=== PATIENT | male | born 1950 | race Caucasian/White ===

== ENCOUNTER → 2016-09-23 | Outpatient (CLI) | payer MEDICARE, BC | LOC: MW.CHRC 08:00 | PROVIDERS: ATTEND Family Medicine | DX: NODX10 (principal) ==

== ENCOUNTER → 2016-10-05 | Outpatient (CLI) | payer MEDICARE, BC | LOC: MW.CHRC 08:00 | PROVIDERS: ATTEND Family Medicine | DX: NODX10 (principal) ==

== ENCOUNTER → 2016-10-18 | Outpatient (CLI) | payer MEDICARE, BC ==
[2016-10-18 08:56] LABS: CHLORIDE,CL 106 mmol/L (98-110); SODIUM,NA 138 mmol/L (136-146)
== END ==
LOC: MW.CHFP 07:51
PROVIDERS: ATTEND Family Medicine
DX: I10 Essential (primary) hypertension (principal); E11.9 Type 2 diabetes mellitus without complications; E78.00 Pure hypercholesterolemia, unspecified
CPT/HCPCS: 36415; 80053; 80061; 82044; 83036; 99215

== ENCOUNTER → 2016-10-19 | Outpatient (CLI) | payer MEDICARE, BC | LOC: MW.CHRC 08:00 | PROVIDERS: ATTEND Family Medicine | DX: NODX10 (principal) ==

== ENCOUNTER → 2016-11-09 | Outpatient (CLI) | payer MEDICARE, BC | LOC: MW.CHRC 08:00 | PROVIDERS: ATTEND Family Medicine | DX: NODX10 (principal) ==

== ENCOUNTER 2018-10-07 15:30 | Emergency (ER) | payer MEDICARE, BC ==
--- NOTE | 2018-10-07 15:45 | EDM.PDOC ---
ED HPI GENERAL MEDICAL PROBLEM - General Chief Complaint: ENT Problem Stated Complaint: BLOODY NOSE FOR A COUPLE OF DAY Time Seen by Provider: 10/07/18 15:45 Source of Information: Reports: Patient - History of Present Illness INITIAL COMMENTS - FREE TEXT/NARRATIVE: HISTORY AND PHYSICAL: History of present illness: [Patient presents with epistaxis off and on for last 2 days has a history of picking his nose started the bleeding No fever nausea vomiting chills sweats no chest pain shortness breath headache dizziness palpitation no bowel or urine symptoms On arrival we did place nares pack on back of his neck in the nose clamp which has resolved bleeding and did cauterize a couple of lesions 1 in each nares very anterior consistent with picking the nose] Review of systems: As per history of present illness and below otherwise all systems reviewed and negative. Past medical history: As per history of present illness and as reviewed below otherwise noncontributory. Surgical history: As per history of present illness and as reviewed below otherwise noncontributory. Social history: No reported history of drug or alcohol abuse. Family history: As per history of present illness and as reviewed below otherwise noncontributory. Physical exam: HEENT: Atraumatic, normocephalic, pupils reactive, negative for conjunctival pallor or scleral icterus, mucous membranes moist, throat clear, neck supple, nontender, trachea midline. Nares are patent no blood observed in the oropharynx or active bleeding does have a couple of excoriations one in each anterior nares cauterized these with silver nitrate no further bleeding Lungs: Clear to auscultation, breath sounds equal bilaterally, chest nontender. Heart: S1S2, regular, negative for clicks, rubs, or JVD. Abdomen: Soft, nondistended, nontender. Negative for masses or hepatosplenomegaly. Negative for costovertebral tenderness. Pelvis: Stable nontender. Genitourinary: Deferred. Rectal: Deferred. Extremities: Atraumatic, negative for cords or calf pain. Neurovascular unremarkable. Neuro: Awake, alert, oriented. Cranial nerves II through XII unremarkable. Cerebellum unremarkable. Motor and sensory unremarkable throughout. Exam nonfocal. Diagnostics: [EBC INR ] Therapeutics: [Silver nitrate ] Impression: [Stat axis resolved ] Definitive disposition and diagnosis as appropriate pending reevaluation and review of above. - Related Data Allergies Allergy/AdvReac Type Severity Reaction Status Date / Time No Known Allergies Allergy Verified 10/07/18 15:44 Home Meds: Home Meds amLODIPine [Norvasc] 5 mg PO DAILY 01/09/15 [History] atorvaSTATin Calcium [Atorvastatin Calcium] 20 mg PO BEDTIME 01/09/15 [History] metFORMIN HCl [Metformin HCl] 1,000 mg PO BID 01/09/15 [History] Furosemide [Lasix] 40 mg PO DAILY 01/13/15 [History] Insulin Lispro [Humalog] 35 units SUBCUT BID 10/07/18 [History] Past Medical History HEENT History: Reports: Other (See Below) Other HEENT History: upper partial Cardiovascular History: Reports: High Cholesterol, Hypertension Respiratory History: Reports: Other (See Below) Other Respiratory History: "possible sleep apnea", unable to finish sleep apnea test- no CPAP mask Other Genitourinary History: urgency and frequency in urination Musculoskeletal History: Reports: None Neurological History: Reports: None Psychiatric History: Reports: None Endocrine/Metabolic History: Reports: Obesity/BMI 30+ Hematologic History: Reports: None Immunologic History: Reports: None Oncologic (Cancer) History: Reports: None Dermatologic History: Reports: None - Past Surgical History GI Surgical History: Reports: Hernia Repair/Other ED ROS GENERAL - Review of Systems Review Of Systems: See Below ED EXAM, GENERAL - Physical Exam Exam: See Below Course - Vital Signs Last Recorded V/S: Last Vital Signs Temp 97.3 F 10/07/18 15:46 Pulse 86 10/07/18 15:46 Resp 18 10/07/18 15:46 BP 178/73 H 10/07/18 15:46 Pulse Ox 95 10/07/18 15:46 - Orders/Labs/Meds Labs: Laboratory Tests 10/07/18 10/07/18 Range/Units 16:13 16:13 WBC 10.43 (4.0-11.0) K/uL RBC 4.24 L (4.50-5.90) M/uL Hgb 13.8 (13.0-17.0) g/dL Hct 39.9 (38.0-50.0) % MCV 94.1 (80.0-98.0) fL MCH 32.5 H (27.0-32.0) pg MCHC 34.6 (31.0-37.0) g/dL RDW Std Deviation 44.6 (28.0-62.0) fl RDW Coeff of Ash 13 (11.0-15.0) % Plt Count 286 (150-400) K/uL MPV 8.90 (7.40-12.00) fL Neut % (Auto) 82.0 H (48.0-80.0) % Lymph % (Auto) 11.8 L (16.0-40.0) % Real % (Auto) 5.4 (0.0-15.0) % Eos % (Auto) 0.6 (0.0-7.0) % Baso % (Auto) 0.2 (0.0-1.5) % Neut # (Auto) 8.6 H (1.4-5.7) K/uL Lymph # (Auto) 1.2 (0.6-2.4) K/uL Real # (Auto) 0.6 (0.0-0.8) K/uL Eos # (Auto) 0.1 (0.0-0.7) K/uL Baso # (Auto) 0.0 (0.0-0.1) K/uL Nucleated RBC % 0.0 /100WBC Nucleated RBCs # 0 K/uL INR 0.99 Departure - Departure Time of Disposition: 17:11 Disposition: Home, Self-Care 01 Condition: Good Clinical Impression: Epistaxis - Discharge Information Referrals: PCP,Unknown [Primary Care Provider] - Forms: ED Department Discharge Additional Instructions: The following information is given to patients seen in the emergency department who are being discharged to home. This information is to outline your options for follow-up care. We provide all patients seen in our emergency department with a follow-up referral. The need for follow-up, as well as the timing and circumstances, are variable depending upon the specifics of your emergency department visit. If you don't have a primary care physician on staff, we will provide you with a referral. We always advise you to contact your personal physician following an emergency department visit to inform them of the circumstance of the visit and for follow-up with them and/or the need for any referrals to a consulting specialist. The emergency department will also refer you to a specialist when appropriate. This referral assures that you have the opportunity for follow-up care with a specialist. All of these measure are taken in an effort to provide you with optimal care, which includes your follow-up. Under all circumstances we always encourage you to contact your private physician who remains a resource for coordinating your care. When calling for follow-up care, please make the office aware that this follow-up is from your recent emergency room visit. If for any reason you are refused follow-up, please contact the [facility] emergency department at and asked to speak to the emergency department charge nurse.
[2018-10-07 17:22] VITALS: BP 171/72
== END 2018-10-07 17:22 | disposition home or self-care (01) ==
LOC: MW.ED 15:30
DX: R04.0 Epistaxis (principal); E78.00 Pure hypercholesterolemia, unspecified; I10 Essential (primary) hypertension; Z79.899 Other long term (current) drug therapy
CPT/HCPCS: 36415; 85025; 85610; 99283

== ENCOUNTER 2018-12-31 03:23 | Observation (INO) | payer MEDICARE, BC ==
[2018-12-31] MEDS ORDERED: Sodium Chloride 0.9% 2.5 ML Syringe FLUSH PRN (03:51)
[2018-12-31] MEDS ORDERED: Sodium Chloride 0.9% 10 ML Syringe FLUSH PRN (03:51)
--- NOTE | 2018-12-31 04:59 | CR ---
Indication: Shortness of breath Technique: Chest 2 view Comparison: December 29, 2018 Findings/Impression: Stable cardiomegaly. Normal pulmonary vasculature. No focal infiltrate, effusion, or pneumothorax. Degenerative changes in the spine. Dictated by Mahogany Ferrer MD @ Dec 31 2018 4:55AM Signed by Dr. Mahogany Ferrer @ Dec 31 2018 4:58AM
[2018-12-31 05:15] LABS: CHLORIDE,CL 106 mmol/L (98-107); SODIUM,NA 144 mmol/L (136-148)
[2018-12-31] MEDS: Vancomycin 1.75 GM in Sodium Chloride 0.9% 500 ML IV SCH (05:24)
[2018-12-31] MEDS: Insulin Aspart 100 Units/ML 3 ML Pen SUBCUT SCH ×3 (07:29→17:46)
[2018-12-31] MEDS ORDERED: Albuterol/Ipratropium 3.0-0.5 MG/3 ML Neb Soln NEB PRN (08:34)
[2018-12-31] MEDS ORDERED: Acetaminophen 325 MG Tab PO PRN (08:34)
[2018-12-31] MEDS ORDERED: Ondansetron 4 MG/2 ML SDV IVPUSH PRN (08:34)
--- NOTE | 2018-12-31 08:47 | PCM.HP ---
H&P History of Present Illness - General Date of Service: 12/31/18 Admit Problem/Dx: Positive blood culture Source of Information: Patient, Old Records History Limitations: Reports: No Limitations - History of Present Illness Initial Comments - Free Text/Narative: This 68 year old male with pmh of HTN, DM Types 2, Afib/flutter, and JOSSELIN was admitted directly after 06/29 BC returned positive. He was previously admitted for chest pain and ACS was ruled out. CT angio of chest revealed ground glass opacities to RUL and RML along with bibasilar atelectasis in which he as treated with Azithromycin and Rocephin. He reports the L sided sharp chest pain is nearly gone, only there when he takes a really deep breath. He reports some mild shortness of breath when he lies flat. reports some mild peripheral edema. He reports he only wears his CPAP after he feels like he isn't getting a good nights sleep. He denies cough or fevers. He reports his pulse ox was reading 87- 90% at home. He denies urinary concerns, reports constipation. Repeat labwork, WNL. CXR reveals cardiomegaly, otherwise no infiltrates. Repeat BC obtained on admission. He will be admitted for positive blood cultures. PCP, Dr Redd. - Related Data Allergies/Adverse Reactions: Allergies Allergy/AdvReac Type Severity Reaction Status Date / Time No Known Allergies Allergy Verified 12/31/18 08:26 Home Medications: Home Meds amLODIPine [Norvasc] 5 mg PO DAILY 01/09/15 [History] atorvaSTATin Calcium [Atorvastatin Calcium] 20 mg PO BEDTIME 01/09/15 [History] metFORMIN HCl [Metformin HCl] 1,000 mg PO BID 01/09/15 [History] Insulin Lispro [Humalog] 35 units SUBCUT BID 10/07/18 [History] Potassium Chloride [Klor-Con 10] 1 tab PO DAILY 12/29/18 [History] Sertraline [Zoloft] 1 tab PO DAILY 12/29/18 [History] Apixaban [Eliquis] 5 mg PO BID #60 tablet 12/30/18 [Rx] Azithromycin [Zithromax] 250 mg PO DAILY #4 tab 12/30/18 [Rx] Bumetanide 1 mg PO DAILY 12/31/18 [History] Past Medical History HEENT History: Reports: Other (See Below) Other HEENT History: upper partial Cardiovascular History: Reports: Afib, High Cholesterol, Hypertension Respiratory History: Reports: Sleep Apnea (CPAP at home, but only wears it sparingly) Other Genitourinary History: urgency and frequency in urination Musculoskeletal History: Reports: None Neurological History: Reports: None Psychiatric History: Reports: None Endocrine/Metabolic History: Reports: Obesity/BMI 30+ Hematologic History: Reports: None Immunologic History: Reports: None Oncologic (Cancer) History: Reports: None Dermatologic History: Reports: None - Infectious Disease History Infectious Disease History: Reports: Chicken Pox - Past Surgical History Head Surgeries/Procedures: Reports: None GI Surgical History: Reports: Hernia Repair/Other Social & Family History - Family History Family Medical History: Noncontributory - Tobacco Use Smoking Status *Q: Never Smoker Second Hand Smoke Exposure: No - Caffeine Use Caffeine Use: Reports: Coffee, Soda - Alcohol Use Alcohol Use History: No Alcohol Use Frequency: Rarely - Recreational Drug Use Recreational Drug Use: No H&P Review of Systems - Review of Systems: Review Of Systems: See Below General: Reports: No Symptoms. Denies: Fever, Chills, Malaise, Weakness HEENT: Reports: No Symptoms. Denies: Headaches, Sinus Congestion, Sore Throat Pulmonary: Reports: Shortness of Breath (intermittently, and sats dip to 87% at home), Pleuritic Chest Pain (with deep breaths). Denies: Cough, Sputum Cardiovascular: Reports: Orthopnea. Denies: Chest Pain, Palpitations, Edema, Lightheadedness, Blood Pressure Problem Gastrointestinal: Reports: Constipation. Denies: Black Stool, Bloody Stool, Nausea, Vomiting Genitourinary: Reports: No Symptoms. Denies: Dysuria, Frequency, Burning Musculoskeletal: Reports: No Symptoms Skin: Reports: No Symptoms Psychiatric: Reports: No Symptoms Neurological: Reports: No Symptoms Hematologic/Lymphatic: Reports: No Symptoms Immunologic: Reports: No Symptoms Exam - Exam Exam: See Below - Vital Signs Vital Signs: Last Vital Signs Temp 97.2 F 12/31/18 07:40 Pulse 67 12/31/18 07:40 Resp 20 12/31/18 07:40 BP 152/71 H 12/31/18 07:40 Pulse Ox 93 L 12/31/18 07:40 Weight: 118.932 kg - Exam General: Alert, Oriented, Cooperative Neck: Supple, Trachea Midline Lungs: Clear to Auscultation, Normal Respiratory Effort Cardiovascular: Regular Rate, Regular Rhythm GI/Abdominal Exam: Normal Bowel Sounds, Soft, Non-Tender Back Exam: Normal Inspection, Full Range of Motion Extremities: Normal Inspection, Normal Range of Motion, Non-Tender, Pedal Edema Neurological: Cranial Nerves Intact Neuro Extensive - Mental Status: Alert, Oriented x3 Neuro Extensive - Motor, Sensory, Reflexes: CN II-XII Intact Psychiatric: Alert, Normal Affect, Normal Mood - Patient Data Lab Results Last 24 hrs: Laboratory Results - last 24 hr 12/31/18 12/31/18 12/31/18 Range/Units 04:46 04:46 06:36 WBC 8.12 (4.0-11.0) K/uL RBC 4.32 L (4.50-5.90) M/uL Hgb 13.6 (13.0-17.0) g/dL Hct 40.7 (38.0-50.0) % MCV 94.2 (80.0-98.0) fL MCH 31.5 (27.0-32.0) pg MCHC 33.4 (31.0-37.0) g/dL RDW Std Deviation 46.8 (28.0-62.0) fl RDW Coeff of Ash 14 (11.0-15.0) % Plt Count 317 (150-400) K/uL MPV 8.80 (7.40-12.00) fL Neut % (Auto) 72.0 (48.0-80.0) % Lymph % (Auto) 16.4 (16.0-40.0) % [place] % (Auto) 9.2 (0.0-15.0) % Eos % (Auto) 2.2 (0.0-7.0) % Baso % (Auto) 0.2 (0.0-1.5) % Neut # (Auto) 5.8 H (1.4-5.7) K/uL Lymph # (Auto) 1.3 (0.6-2.4) K/uL [place] # (Auto) 0.8 (0.0-0.8) K/uL Eos # (Auto) 0.2 (0.0-0.7) K/uL Baso # (Auto) 0.0 (0.0-0.1) K/uL Nucleated RBC % 0.0 /100WBC Nucleated RBCs # 0 K/uL Sodium 144 (136-148) mmol/L Potassium 3.4 L (3.5-5.1) mmol/L Chloride 106 (98-107) mmol/L Carbon Dioxide 28.4 (21.0-32.0) mmol/L BUN 18 (7.0-18.0) mg/dL Creatinine 0.8 (0.8-1.3) mg/dL Est Cr Clr Drug Dosing 78.64 mL/min Estimated GFR (MDRD) > 60.0 ml/min Glucose 120 H (74-106) mg/dL POC Glucose 111 H (60-110) mg/dL Calcium 8.6 (8.5-10.1) mg/dL Result Diagrams: 12/31/18 04:46 12/31/18 04:46 *Q Meaningful Use (ADM) - VTE Risk Assess *Q Each Risk Factor Represents 1 Point: Obesity ( BMI > 25 kg/m2), Congestive heart failure (CHF), Serious lung disease including pneumonia Total Score 1 Point Risk Factors: 3 Each Risk Factor Represents 2 Points: Age 60 - 74 Years Total Score 2 Point Risk Factors: 2 Each Risk Factor Represents 3 Points: None Total Score 3 Point Risk Factors: 0 Each Risk Factor Represents 5 Points: None Total Score 5 Point Risk Factors: 0 Venous Thromboembolism Risk Factor Score *Q: 5 - Problem List (1) Positive blood culture SNOMED Code(s): 333090023 ICD Code: R78.81 - BACTEREMIA Status: Acute Current Visit: Yes (2) Dyspnea SNOMED Code(s): 399371772 ICD Code: R06.00 - DYSPNEA, UNSPECIFIED Status: Acute Current Visit: No Qualifiers: Dyspnea type: orthopnea Qualified Code(s): R06.01 - Orthopnea (3) Orthopnea SNOMED Code(s): 12201896 ICD Code: R06.01 - ORTHOPNEA Status: Acute Current Visit: Yes (4) HTN (hypertension) SNOMED Code(s): 94129827 ICD Code: I10 - ESSENTIAL (PRIMARY) HYPERTENSION Status: Chronic Current Visit: Yes (5) DM type 2 (diabetes mellitus, type 2) SNOMED Code(s): 45011887 ICD Code: E11.9 - TYPE 2 DIABETES MELLITUS WITHOUT COMPLICATIONS Status: Chronic Current Visit: Yes Qualifiers: Diabetes mellitus fci insulin use: with fci use Diabetes mellitus complication status: with circulatory complication (6) JOSSELIN on CPAP SNOMED Code(s): 38213336 ICD Code: G47.33 - OBSTRUCTIVE SLEEP APNEA (ADULT) (PEDIATRIC); Z99.89 - DEPENDENCE ON OTHER ENABLING MACHINES AND DEVICES Status: Chronic Current Visit: Yes (7) Atrial fibrillation SNOMED Code(s): 02961103 ICD Code: I48.91 - UNSPECIFIED ATRIAL FIBRILLATION Status: Chronic Current Visit: Yes (8) On continuous oral anticoagulation SNOMED Code(s): 355342671 ICD Code: Z79.01 - JAIL (CURRENT) USE OF ANTICOAGULANTS Status: Chronic Current Visit: Yes Problem List Initiated/Reviewed/Updated: Yes Orders Last 24hrs: Active Orders 24 hr Category Date Time Status Blood Glucose Check, Bedside [RC] WITHMEALSANDBED Care 12/31/18 03:52 Active Incentive Spirometry [RT Incentive Spirometry] [RC] Care 12/31/18 03:52 Active Q1HWA Intake and Output [RC] QSHIFT Care 12/31/18 08:34 Ordered Oxygen Therapy [RC] PRN Care 12/31/18 08:34 Ordered RT Aerosol Therapy [RC] ASDIRECTED Care 12/31/18 08:37 Ordered Telemetry Monitoring [Cardiac Monitoring] [RC] Q8H Care 12/31/18 03:50 Active Up ad Quynh [RC] ASDIRECTED Care 12/31/18 08:34 Ordered VTE/DVT Education [RC] PER UNIT ROUTINE Care 12/31/18 08:34 Ordered Vital Signs [RC] Q4H Care 12/31/18 08:34 Ordered ADA Diabetic [[place] [employer] Diet] [DIET Diet 12/31/18 Breakfast Active ] Echo Comp wo Cont [US] Routine Exams 12/31/18 08:31 Ordered CULTURE BLOOD [BC] Stat Lab 12/31/18 04:46 Received CULTURE BLOOD [BC] Stat Lab 12/31/18 05:20 Received VANCOMYCIN TROUGH [CHEM] Timed Lab 01/03/19 03:30 Ordered Acetaminophen [Tylenol] Med 12/31/18 08:34 Ordered 650 mg PO Q4H PRN Albuterol/Ipratropium [DuoNeb 3.0-0.5 MG/3 ML] Med 12/31/18 08:34 Ordered 3 ml NEB Q4HRRT PRN Azithromycin [Zithromax] Med 12/31/18 08:30 Ordered 500 mg PO Q24H Insulin Aspart [NovoLOG] Med 12/31/18 07:30 Active See Protocol SUBCUT TIDAC Ondansetron [Zofran] Med 12/31/18 08:34 Ordered 4 mg IVPUSH Q4H PRN Pharmacy to Dose - Vancomycin Med 12/31/18 04:00 Active 1 dose .XX ASDIRECTED Sodium Chloride 0.9% [Saline Flush] Med 12/31/18 03:51 Active 10 ml FLUSH ASDIRECTED PRN Sodium Chloride 0.9% [Saline Flush] Med 12/31/18 03:51 Active 2.5 ml FLUSH ASDIRECTED PRN Vancomycin 1.75 gm Med 12/31/18 04:00 Active Sodium Chloride 0.9% [Normal Saline] 500 ml IV Q24H cefTRIAXone [Rocephin in Dextrose,Iso-Osm 1 GM/50 ML] 1 Med 12/31/18 08:30 Ordered gm Premix Bag 1 bag IV Q24H Blood Culture x2 Reflex Set [OM.PC] Stat Oth 12/31/18 03:50 Ordered Saline Lock Insert [OM.PC] Routine Oth 12/31/18 03:51 Ordered Resuscitation Status Routine Resus Stat 12/31/18 08:34 Ordered Medication Orders Acetaminophen (Tylenol) 650 mg PO Q4H PRN PRN Reason: Pain (mild 1-3) Albuterol/Ipratropium (Duoneb 3.0-0.5 Mg/3 Ml) 3 ml NEB Q4HRRT PRN PRN Reason: Shortness Of Breath/wheezing Azithromycin (Zithromax) 500 mg PO Q24H [facility] Vancomycin HCl 1.75 gm/ Sodium (Chloride) 500 mls @ 333.333 mls/hr IV Q24H [facility] Last Admin: 12/31/18 05:24 Dose: 333.333 mls/hr Ceftriaxone Sodium/Dextrose 1 (gm/ Premix) 50 mls @ 100 mls/hr IV Q24H [facility] Insulin Aspart (Novolog) 0 unit SUBCUT TIDAC [facility]; Protocol Last Admin: 12/31/18 07:29 Dose: Not Given Ondansetron HCl (Zofran) 4 mg IVPUSH Q4H PRN PRN Reason: Nausea Sodium Chloride (Saline Flush) 10 ml FLUSH ASDIRECTED PRN PRN Reason: Keep Vein Open Sodium Chloride (Saline Flush) 2.5 ml FLUSH ASDIRECTED PRN PRN Reason: Keep Vein Open Vancomycin HCl (Pharmacy To Dose - Vancomycin) 1 dose .XX ASDIRECTED [facility] Assessment/Plan Comment:: THis 68 year old male admitted with positive blood cultures and noted to have continued dyspnea and orthopnea 1. Positive blood cultures: Rule out bacteremia. Repeat BC obtained this morning. Cover with Vancomycin. Consider contaminate. 2. Suspected CAP: Continue Rocephin and Azithromycin. No cough or sputum. 3. Orthopnea: Will give Bumex 1 mg IV now, and monitor effectiveness. Takes Bumex 1 mg PO at home. Will obtain ECHO to further evaluate Cardiomegaly. 4. JOSSELIN with CPAP: Educated on the necessity to wear CPAP every night to prevent cardiac risk. He verbalizes understanding. 5. DM Type 2: Hold PO meds. Continue Novolog SSI and monitor BS TIDAC. 6. Afib/fluter: noted on last admission, rate controlled. Eliquis to be continued for stroke prevention. Supplement potassium today, check Magnesium and supplement as needed. 7. HTN: Stable, continue Amlodipine. VTE prophylaxis: Elqiuis. Dispo: 1-2 days pending LENI.
[2018-12-31] MEDS ORDERED: Sertraline 50 MG Tab PO SCH ×2 (09:00→09:15)
[2018-12-31] MEDS ORDERED: Bumetanide 1 MG Tab PO SCH (09:03)
[2018-12-31] MEDS: Azithromycin 250 MG Tab PO SCH (09:03)
[2018-12-31] MEDS: cefTRIAXone 1 GM in Premix Bag 1 BAG IV SCH (09:04)
[2018-12-31] MEDS ORDERED: amLODIPine 5 MG Tab PO SCH (09:15)
[2018-12-31] MEDS ORDERED: Potassium Chloride 10 MEQ Tab.ER PO SCH (09:15)
[2018-12-31] MEDS ORDERED: Bumetanide 1 MG/4 ML MDV IVPUSH ONE (09:17)
[2018-12-31] MEDS ORDERED: Potassium Chloride 20 MEQ Tab.ER PO ONE (09:17)
[2018-12-31] MEDS: Apixaban 5 MG Tab PO SCH ×2 (10:22→21:07)
[2018-12-31] MEDS: amLODIPine 5 MG Tab PO SCH (10:32)
[2018-12-31] MEDS ORDERED: atorvaSTATin 20 MG Tab PO SCH (21:00)
[2019-01-01] MEDS: Vancomycin 1.75 GM in Sodium Chloride 0.9% 500 ML IV SCH (04:00)
[2019-01-01 06:27] LABS: CHLORIDE,CL 105 mmol/L (98-107); SODIUM,NA 142 mmol/L (136-148)
[2019-01-01] MEDS: Insulin Aspart 100 Units/ML 3 ML Pen SUBCUT SCH ×3 (08:08→17:33)
[2019-01-01] MEDS: amLODIPine 5 MG Tab PO SCH (08:15)
[2019-01-01] MEDS: Potassium Chloride 10 MEQ Tab.ER PO SCH (08:17)
[2019-01-01] MEDS: Sertraline 50 MG Tab PO SCH (08:18)
[2019-01-01] MEDS ORDERED: Bumetanide 1 MG/4 ML MDV IVPUSH ONE ×2 (08:36→12:00)
[2019-01-01] MEDS ORDERED: Bumetanide 1 MG Tab PO SCH (09:00)
[2019-01-01] MEDS ORDERED: amLODIPine 5 MG Tab PO SCH (09:00)
[2019-01-01] MEDS: cefTRIAXone 1 GM in Premix Bag 1 BAG IV SCH (09:03)
[2019-01-01] MEDS: Apixaban 5 MG Tab PO SCH ×2 (09:03→20:00)
[2019-01-01] MEDS: Azithromycin 250 MG Tab PO SCH (09:04)
--- NOTE | 2019-01-01 09:36 | PCM.PN ---
- General Info Date of Service: 01/01/19 Admission Dx/Problem (Free Text): Positive blood culture Subjective Update: Feeling better this morning. No concerns. Reports edema to legs has improved. No chest pain. No pain with deep breathing. Worried about BP elevated this morning. Functional Status: Reports: Pain Controlled, Tolerating Diet, Ambulating, Urinating - Review of Systems General: Reports: No Symptoms. Denies: Fever, Weakness HEENT: Reports: No Symptoms. Denies: Headaches, Sore Throat, Visual Changes Pulmonary: Reports: No Symptoms. Denies: Shortness of Breath, Pleuritic Chest Pain, Cough Cardiovascular: Reports: Edema (but improving to lower legs.) Gastrointestinal: Reports: No Symptoms. Denies: Abdominal Pain, Nausea, Vomiting Genitourinary: Reports: No Symptoms. Denies: Dysuria, Frequency, Burning Musculoskeletal: Reports: No Symptoms Skin: Reports: No Symptoms Neurological: Reports: No Symptoms Psychiatric: Reports: No Symptoms - Patient Data Vitals - Most Recent: Last Vital Signs Temp 97.5 F 01/01/19 07:30 Pulse 68 01/01/19 07:30 Resp 18 01/01/19 07:30 BP 197/87 H 01/01/19 07:30 Pulse Ox 94 L 01/01/19 07:30 Weight - Most Recent: 118.932 kg I&O - Last 24 Hours: Intake & Output 12/31/18 01/01/19 01/01/19 22:59 06:59 14:59 Intake Total 600 700 190 Output Total 895 150 Balance -295 550 190 Lab Results Last 24 Hours: Laboratory Results - last 24 hr 12/31/18 12/31/18 12/31/18 Range/Units 11:30 13:10 17:12 Sodium (136-148) mmol/L Potassium (3.5-5.1) mmol/L Chloride (98-107) mmol/L Carbon Dioxide (21.0-32.0) mmol/L BUN (7.0-18.0) mg/dL Creatinine (0.8-1.3) mg/dL Est Cr Clr Drug Dosing mL/min Estimated GFR (MDRD) ml/min Glucose (74-106) mg/dL POC Glucose 203 H 198 H 181 H (60-110) mg/dL Calcium (8.5-10.1) mg/dL Magnesium (1.8-2.4) mg/dL 12/31/18 01/01/19 01/01/19 Range/Units 21:13 05:35 06:39 Sodium 142 (136-148) mmol/L Potassium 3.7 (3.5-5.1) mmol/L Chloride 105 (98-107) mmol/L Carbon Dioxide 29.5 (21.0-32.0) mmol/L BUN 15 (7.0-18.0) mg/dL Creatinine 0.7 L (0.8-1.3) mg/dL Est Cr Clr Drug Dosing 89.88 mL/min Estimated GFR (MDRD) > 60.0 ml/min Glucose 184 H (74-106) mg/dL POC Glucose 169 H 174 H (60-110) mg/dL Calcium 8.2 L (8.5-10.1) mg/dL Magnesium 2.0 (1.8-2.4) mg/dL 01/01/19 Range/Units 07:43 Sodium (136-148) mmol/L Potassium (3.5-5.1) mmol/L Chloride (98-107) mmol/L Carbon Dioxide (21.0-32.0) mmol/L BUN (7.0-18.0) mg/dL Creatinine (0.8-1.3) mg/dL Est Cr Clr Drug Dosing mL/min Estimated GFR (MDRD) ml/min Glucose (74-106) mg/dL POC Glucose 161 H (60-110) mg/dL Calcium (8.5-10.1) mg/dL Magnesium (1.8-2.4) mg/dL Ranjit Results Last 24 Hours: Microbiology 12/31/18 05:20 Aerobic Blood Culture - Preliminary Blood - Venous - Lab Draw NO GROWTH AFTER 1 DAY Anaerobic Blood Culture - Preliminary NO GROWTH AFTER 1 DAY 12/31/18 04:46 Aerobic Blood Culture - Preliminary Blood - Venous NO GROWTH AFTER 1 DAY Anaerobic Blood Culture - Preliminary NO GROWTH AFTER 1 DAY Med Orders - Current: Current Medications Acetaminophen (Tylenol) 650 mg PO Q4H PRN PRN Reason: Pain (mild 1-3) Albuterol/Ipratropium (Duoneb 3.0-0.5 Mg/3 Ml) 3 ml NEB Q4HRRT PRN PRN Reason: Shortness Of Breath/wheezing Apixaban (Eliquis) 5 mg PO BID [facility] Last Admin: 01/01/19 09:03 Dose: 5 mg Azithromycin (Zithromax) 500 mg PO Q24H [facility] Last Admin: 01/01/19 09:04 Dose: 500 mg Vancomycin HCl 1.75 gm/ Sodium (Chloride) 500 mls @ 333.333 mls/hr IV Q24H [facility] [place] Last Admin: 01/01/19 04:00 Dose: 333.333 mls/hr Ceftriaxone Sodium/Dextrose 1 (gm/ Premix) 50 mls @ 100 mls/hr IV Q24H [facility] Last Admin: 01/01/19 09:03 Dose: 100 mls/hr Insulin Aspart (Novolog) 0 unit SUBCUT TIDAC [facility] [place]; Protocol Last Admin: 01/01/19 08:08 Dose: 2 units Ondansetron HCl (Zofran) 4 mg IVPUSH Q4H PRN PRN Reason: Nausea Potassium Chloride (10 Meq Tab.Er) 1 each PO DAILY [facility] [place] Last Admin: 01/01/19 08:17 Dose: 10 each Atorvastatin 20 Mg (Tab) 1 each PO BEDTIME [facility] Sertraline 50 Mg Tab 1 each PO DAILY [facility] Last Admin: 01/01/19 08:18 Dose: 1 each Amlodipine 5 Mg Tab 1 each PO DAILY [facility] [place] Last Admin: 01/01/19 08:18 Dose: 1 each Sodium Chloride (Saline Flush) 10 ml FLUSH ASDIRECTED PRN PRN Reason: Keep Vein Open Sodium Chloride (Saline Flush) 2.5 ml FLUSH ASDIRECTED PRN PRN Reason: Keep Vein Open Vancomycin HCl (Pharmacy To Dose - Vancomycin) 1 dose .XX ASDIRECTED [facility] [place] Discontinued Medications Amlodipine Besylate (Norvasc) 5 mg PO DAILY [facility] [place] Last Admin: 12/31/18 10:33 Dose: Not Given Bumetanide (Bumex) 1 mg PO DAILY [facility] [place] Last Admin: 12/31/18 10:33 Dose: Not Given Bumetanide (Bumex) 1 mg IVPUSH ONETIME ONE Stop: 12/31/18 09:18 Last Admin: 12/31/18 10:24 Dose: 1 mg Bumetanide (Bumex) 1 mg IVPUSH ONETIME ONE Stop: 01/01/19 08:37 Atorvastatin 20 Mg (Tab) 20 each PO BEDTIME [facility] Last Admin: 12/31/18 21:08 Dose: 20 each Bumetanide 1 Mg Tab 1 each PO DAILY [facility] Last Admin: 01/01/19 08:16 Dose: 1 each Sertraline 50 Mg Tab 50 each PO DAILY [facility] Last Admin: 12/31/18 10:30 Dose: 50 each Amlodipine 5 Mg Tab 5 each PO DAILY [facility] Last Admin: 01/01/19 08:15 Dose: 5 each Potassium Chloride (Klor-Con 10) 10 meq PO DAILY [facility] Last Admin: 12/31/18 10:33 Dose: Not Given Potassium Chloride (Klor-Con M20) 20 meq PO ONETIME ONE Stop: 12/31/18 09:18 Last Admin: 12/31/18 10:22 Dose: 20 meq Sertraline HCl (Zoloft) 50 mg PO DAILY [facility] Last Admin: 12/31/18 10:33 Dose: Not Given - Exam Quality Assessment: DVT Prophylaxis. No: Supplemental Oxygen General: Alert, Oriented, Cooperative Neck: Supple Lungs: Clear to Auscultation, Normal Respiratory Effort Cardiovascular: Regular Rate, Regular Rhythm GI/Abdominal Exam: Normal Bowel Sounds, Soft, Non-Tender Extremities: Normal Inspection, Normal Range of Motion, Non-Tender, Pedal Edema (+1 to scant pitting edema, improved.) Neurological: No New Focal Deficit Psy/Mental Status: Alert, Normal Affect, Normal Mood - Problem List & Annotations (1) Positive blood culture SNOMED Code(s): 024676351 Code(s): R78.81 - BACTEREMIA Status: Acute Current Visit: Yes (2) Dyspnea SNOMED Code(s): 596163307 Code(s): R06.00 - DYSPNEA, UNSPECIFIED Status: Acute Current Visit: No Qualifiers: Dyspnea type: orthopnea Qualified Code(s): R06.01 - Orthopnea (3) Orthopnea SNOMED Code(s): 11437181 Code(s): R06.01 - ORTHOPNEA Status: Acute Current Visit: Yes (4) HTN (hypertension) SNOMED Code(s): 90272493 Code(s): I10 - ESSENTIAL (PRIMARY) HYPERTENSION Status: Chronic Current Visit: Yes (5) DM type 2 (diabetes mellitus, type 2) SNOMED Code(s): 76348102 Code(s): E11.9 - TYPE 2 DIABETES MELLITUS WITHOUT COMPLICATIONS Status: Chronic Current Visit: Yes Qualifiers: Diabetes mellitus 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 care 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 Diabetes mellitus complication status: with circulatory complication (6) JOSSELIN on CPAP SNOMED Code(s): 80814346 Code(s): G47.33 - OBSTRUCTIVE SLEEP APNEA (ADULT) (PEDIATRIC); Z99.89 - DEPENDENCE ON OTHER ENABLING MACHINES AND DEVICES Status: Chronic Current Visit: Yes (7) Atrial fibrillation SNOMED Code(s): 66006739 Code(s): I48.91 - UNSPECIFIED ATRIAL FIBRILLATION Status: Chronic Current Visit: Yes (8) On continuous oral anticoagulation SNOMED Code(s): 335368359 Code(s): Z79.01 - [facility] (CURRENT) USE OF ANTICOAGULANTS Status: Chronic Current Visit: Yes - Problem List Review Problem List Initiated/Reviewed/Updated: Yes - My Orders Last 24 Hours: My Active Orders 12/31/18 08:37 RT Aerosol Therapy [RC] ASDIRECTED 12/31/18 08:47 Admission Status [Patient Status] [ADT] Routine 12/31/18 09:13 Communication Order [RC] ROUTINE 12/31/18 09:15 Apixaban [Eliquis] 5 mg PO BID 01/01/19 09:00 Patient's Own Medication [Ptom] 1 each PO DAILY Patient's Own Medication [Ptom] 1 each PO DAILY Patient's Own Medication [Ptom] 1 each PO DAILY 01/01/19 21:00 Patient's Own Medication [Ptom] 1 each PO BEDTIME - Plan Plan:: This 68 year old male admitted with positive blood cultures and noted to have continued dyspnea and orthopnea 1. Positive blood cultures: Rule out bacteremia. Repeat BC no growth x 1 day. initial BC RANJIT still pending. Continue Vancomycin. Consider contaminate. 2. Suspected CAP: Improving. Continue Rocephin and Azithromycin. 3. Orthopnea: Will give Bumex 1 mg IV again today, [place] improved with dosing yesterday. ECHO poor windows, recommend repeat with contrast. 4. JOSSELIN with CPAP: Educated on the necessity to wear CPAP every night to prevent cardiac risk. He verbalizes understanding. 5. DM Type 2: Hold PO meds. Continue Novolog SSI and monitor BS TIDAC. 6. Afib/fluter: Stable, rate controlled. Eliquis. Supplement potassium today, check Magnesium and supplement as needed. 7. HTN: Elevate this morning prior to morning meds. Continue Amlodipine. May consider ELLEN if BP remains elevated. Asymptomatic. VTE prophylaxis: Ena. Dispo: 1-2 days pending [facility].
[2019-01-01] MEDS ORDERED: Potassium Chloride 20 MEQ Tab.ER PO ONE (12:24)
[2019-01-01] MEDS ORDERED: amLODIPine 5 MG Tab PO ONE (16:21)
[2019-01-01] MEDS: atorvaSTATin 20 MG Tab PO SCH (20:00)
[2019-01-02] MEDS: Vancomycin 1.75 GM in Sodium Chloride 0.9% 500 ML IV SCH (04:00)
[2019-01-02 05:42] LABS: CHLORIDE,CL 105 mmol/L (98-107); SODIUM,NA 141 mmol/L (136-148)
[2019-01-02] MEDS: Insulin Aspart 100 Units/ML 3 ML Pen SUBCUT SCH ×3 (08:16→17:41)
[2019-01-02] MEDS: cefTRIAXone 1 GM in Premix Bag 1 BAG IV SCH (08:31)
[2019-01-02] MEDS: Potassium Chloride 10 MEQ Tab.ER PO SCH (09:30)
[2019-01-02] MEDS: Sertraline 50 MG Tab PO SCH (09:30)
[2019-01-02] MEDS: Apixaban 5 MG Tab PO SCH ×2 (09:34→20:26)
[2019-01-02] MEDS: Azithromycin 250 MG Tab PO SCH (09:34)
--- NOTE | 2019-01-02 11:26 | ECHO ---
The echocardiogram report can be seen in this patient's EMR (Electronic Medical Record) in the Reports section. The echocardiogram report has been scanned into PACS and can be seen there as well. MRAY
--- NOTE | 2019-01-02 13:23 | PCM.PN ---
- General Info Date of Service: 01/02/19 Admission Dx/Problem (Free Text): Positive blood culture Subjective Update: Doing well, no chest pain no SOB. Eager to have results from so he can go home. Functional Status: Reports: Pain Controlled, Tolerating Diet, Ambulating, Urinating - Review of Systems HEENT: Reports: No Symptoms. Denies: Sore Throat, Visual Changes Pulmonary: Reports: No Symptoms. Denies: Shortness of Breath Cardiovascular: Reports: No Symptoms. Denies: Chest Pain, Edema Gastrointestinal: Reports: No Symptoms. Denies: Abdominal Pain, Nausea, Vomiting Musculoskeletal: Reports: No Symptoms Skin: Reports: No Symptoms Neurological: Reports: No Symptoms Psychiatric: Reports: No Symptoms - Patient Data Vitals - Most Recent: Last Vital Signs Temp 98.2 F 01/02/19 11:43 Pulse 63 01/02/19 11:43 Resp 18 01/02/19 11:43 BP 148/75 H 01/02/19 11:43 Pulse Ox 92 L 01/02/19 11:43 Weight - Most Recent: 118.932 kg I&O - Last 24 Hours: Intake & Output 01/01/19 01/02/19 01/02/19 22:59 06:59 14:59 Intake Total 840 600 240 Output Total 1370 1000 Balance -530 -400 240 Lab Results Last 24 Hours: Laboratory Results - last 24 hr 01/01/19 01/01/19 01/02/19 Range/Units 16:02 21:32 04:40 WBC 8.36 (4.0-11.0) K/uL RBC 4.50 (4.50-5.90) M/uL Hgb 13.9 (13.0-17.0) g/dL Hct 42.2 (38.0-50.0) % MCV 93.8 (80.0-98.0) fL MCH 30.9 (27.0-32.0) pg MCHC 32.9 (31.0-37.0) g/dL RDW Std Deviation 45.9 (28.0-62.0) fl RDW Coeff of Ash 13 (11.0-15.0) % Plt Count 352 (150-400) K/uL MPV 9.00 (7.40-12.00) fL Neut % (Auto) 70.9 (48.0-80.0) % Lymph % (Auto) 18.2 (16.0-40.0) % [place] % (Auto) 7.5 (0.0-15.0) % Eos % (Auto) 3.0 (0.0-7.0) % Baso % (Auto) 0.4 (0.0-1.5) % Neut # (Auto) 5.9 H (1.4-5.7) K/uL Lymph # (Auto) 1.5 (0.6-2.4) K/uL [place] # (Auto) 0.6 (0.0-0.8) K/uL Eos # (Auto) 0.3 (0.0-0.7) K/uL Baso # (Auto) 0.0 (0.0-0.1) K/uL Nucleated RBC % 0.0 /100WBC Nucleated RBCs # 0 K/uL Sodium (136-148) mmol/L Potassium (3.5-5.1) mmol/L Chloride (98-107) mmol/L Carbon Dioxide (21.0-32.0) mmol/L BUN (7.0-18.0) mg/dL Creatinine (0.8-1.3) mg/dL Est Cr Clr Drug Dosing mL/min Estimated GFR (MDRD) ml/min Glucose (74-106) mg/dL POC Glucose 180 H 219 H (60-110) mg/dL Calcium (8.5-10.1) mg/dL 01/02/19 01/02/19 01/02/19 Range/Units 04:40 06:48 11:22 WBC (4.0-11.0) K/uL RBC (4.50-5.90) M/uL Hgb (13.0-17.0) g/dL Hct (38.0-50.0) % MCV (80.0-98.0) fL MCH (27.0-32.0) pg MCHC (31.0-37.0) g/dL RDW Std Deviation (28.0-62.0) fl RDW Coeff of Ash (11.0-15.0) % Plt Count (150-400) K/uL MPV (7.40-12.00) fL Neut % (Auto) (48.0-80.0) % Lymph % (Auto) (16.0-40.0) % [place] % (Auto) (0.0-15.0) % Eos % (Auto) (0.0-7.0) % Baso % (Auto) (0.0-1.5) % Neut # (Auto) (1.4-5.7) K/uL Lymph # (Auto) (0.6-2.4) K/uL [place] # (Auto) (0.0-0.8) K/uL Eos # (Auto) (0.0-0.7) K/uL Baso # (Auto) (0.0-0.1) K/uL Nucleated RBC % /100WBC Nucleated RBCs # K/uL Sodium 141 (136-148) mmol/L Potassium 4.0 (3.5-5.1) mmol/L Chloride 105 (98-107) mmol/L Carbon Dioxide 28.1 (21.0-32.0) mmol/L BUN 17 (7.0-18.0) mg/dL Creatinine 0.8 (0.8-1.3) mg/dL Est Cr Clr Drug Dosing 78.64 mL/min Estimated GFR (MDRD) > 60.0 ml/min Glucose 195 H (74-106) mg/dL POC Glucose 201 H 209 H (60-110) mg/dL Calcium 8.4 L (8.5-10.1) mg/dL Ranjit Results Last 24 Hours: Microbiology 12/31/18 05:20 Aerobic Blood Culture - Preliminary Blood - Venous - Lab Draw NO GROWTH AFTER 2 DAYS Anaerobic Blood Culture - Preliminary NO GROWTH AFTER 2 DAYS 12/31/18 04:46 Aerobic Blood Culture - Preliminary Blood - Venous NO GROWTH AFTER 2 DAYS Anaerobic Blood Culture - Preliminary NO GROWTH AFTER 2 DAYS Med Orders - Current: Current Medications Acetaminophen (Tylenol) 650 mg PO Q4H PRN PRN Reason: Pain (mild 1-3) Albuterol/Ipratropium (Duoneb 3.0-0.5 Mg/3 Ml) 3 ml NEB Q4HRRT PRN PRN Reason: Shortness Of Breath/wheezing Apixaban (Eliquis) 5 mg PO BID [facility] Last Admin: 01/02/19 09:34 Dose: 5 mg Azithromycin (Zithromax) 500 mg PO Q24H [facility] Last Admin: 01/02/19 09:34 Dose: 500 mg Vancomycin HCl 1.75 gm/ Sodium (Chloride) 500 mls @ 333.333 mls/hr IV Q24H [facility] Last Admin: 01/02/19 04:00 Dose: 333.333 mls/hr Ceftriaxone Sodium/Dextrose 1 (gm/ Premix) 50 mls @ 100 mls/hr IV Q24H [facility] Last Admin: 01/02/19 08:31 Dose: 100 mls/hr Insulin Aspart (Novolog) 0 unit SUBCUT TIDAC [facility]; Protocol Last Admin: 01/02/19 12:37 Dose: 4 units Ondansetron HCl (Zofran) 4 mg IVPUSH Q4H PRN PRN Reason: Nausea Potassium Chloride (10 Meq Tab.Er) 1 each PO DAILY [facility] Last Admin: 01/02/19 09:30 Dose: 1 each Atorvastatin 20 Mg (Tab) 1 each PO BEDTIME [facility] Last Admin: 01/01/19 20:00 Dose: 1 each Sertraline 50 Mg Tab 1 each PO DAILY [facility] Last Admin: 01/02/19 09:30 Dose: 1 each Amlodipine 5mg (Tablet) 2 each PO DAILY [facility] Last Admin: 01/02/19 09:32 Dose: 2 each Sodium Chloride (Saline Flush) 10 ml FLUSH ASDIRECTED PRN PRN Reason: Keep Vein Open Sodium Chloride (Saline Flush) 2.5 ml FLUSH ASDIRECTED PRN PRN Reason: Keep Vein Open Vancomycin HCl (Pharmacy To Dose - Vancomycin) 1 dose .XX ASDIRECTED [facility] Discontinued Medications Amlodipine Besylate (Norvasc) 5 mg PO DAILY [facility] Last Admin: 12/31/18 10:33 Dose: Not Given Amlodipine Besylate (Norvasc) 5 mg PO ONETIME ONE Stop: 01/01/19 16:22 Last Admin: 01/01/19 16:47 Dose: 5 mg Bumetanide (Bumex) 1 mg PO DAILY [facility] Last Admin: 12/31/18 10:33 Dose: Not Given Bumetanide (Bumex) 1 mg IVPUSH ONETIME ONE Stop: 12/31/18 09:18 Last Admin: 12/31/18 10:24 Dose: 1 mg Bumetanide (Bumex) 1 mg IVPUSH ONETIME ONE Stop: 01/01/19 08:37 Last Admin: 01/01/19 11:58 Dose: Not Given Bumetanide (Bumex) 1 mg IVPUSH ONETIME ONE Stop: 01/01/19 12:01 Last Admin: 01/01/19 11:51 Dose: 1 mg Atorvastatin 20 Mg (Tab) 20 each PO BEDTIME [facility] Last Admin: 12/31/18 21:08 Dose: 20 each Bumetanide 1 Mg Tab 1 each PO DAILY [facility] Last Admin: 01/01/19 08:16 Dose: 1 each Sertraline 50 Mg Tab 50 each PO DAILY [facility] Last Admin: 12/31/18 10:30 Dose: 50 each Amlodipine 5 Mg Tab 5 each PO DAILY [facility] Last Admin: 01/01/19 08:15 Dose: 5 each Amlodipine 5 Mg Tab 1 each PO DAILY [facility] Last Admin: 01/01/19 08:18 Dose: 1 each Potassium Chloride (Klor-Con 10) 10 meq PO DAILY [facility] Last Admin: 12/31/18 10:33 Dose: Not Given Potassium Chloride (Klor-Con M20) 20 meq PO ONETIME ONE Stop: 12/31/18 09:18 Last Admin: 12/31/18 10:22 Dose: 20 meq Potassium Chloride (Klor-Con M20) 20 meq PO ONETIME ONE Stop: 01/01/19 12:25 Last Admin: 01/01/19 13:59 Dose: 20 meq Sertraline HCl (Zoloft) 50 mg PO DAILY [facility] Last Admin: 12/31/18 10:33 Dose: Not Given - Exam General: Alert, Oriented, Cooperative, No Acute Distress Lungs: Clear to Auscultation, Normal Respiratory Effort Cardiovascular: Regular Rate, Irregular Rhythm GI/Abdominal Exam: Normal Bowel Sounds, Soft, Non-Tender Extremities: Normal Inspection, Normal Range of Motion, Non-Tender, No Pedal Edema Neurological: No New Focal Deficit Psy/Mental Status: Alert, Normal Affect, Normal Mood - Problem List & Annotations (1) Positive blood culture SNOMED Code(s): 639871830 Code(s): R78.81 - BACTEREMIA Status: Acute Current Visit: Yes (2) Dyspnea SNOMED Code(s): 514379014 Code(s): R06.00 - DYSPNEA, UNSPECIFIED Status: Acute Current Visit: No Qualifiers: Dyspnea type: orthopnea Qualified Code(s): R06.01 - Orthopnea (3) Orthopnea SNOMED Code(s): 26111436 Code(s): R06.01 - ORTHOPNEA Status: Acute Current Visit: Yes (4) HTN (hypertension) SNOMED Code(s): 36522408 Code(s): I10 - ESSENTIAL (PRIMARY) HYPERTENSION Status: Chronic Current Visit: Yes (5) DM type 2 (diabetes mellitus, type 2) SNOMED Code(s): 45754400 Code(s): E11.9 - TYPE 2 DIABETES MELLITUS WITHOUT COMPLICATIONS Status: Chronic Current Visit: Yes Qualifiers: Diabetes mellitus 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 Diabetes mellitus complication status: with circulatory complication (6) JOSSELIN on CPAP SNOMED Code(s): 90450011 Code(s): G47.33 - OBSTRUCTIVE SLEEP APNEA (ADULT) (PEDIATRIC); Z99.89 - DEPENDENCE ON OTHER ENABLING MACHINES AND DEVICES Status: Chronic Current Visit: Yes (7) Atrial fibrillation SNOMED Code(s): 95853867 Code(s): I48.91 - UNSPECIFIED ATRIAL FIBRILLATION Status: Chronic Current Visit: Yes (8) On continuous oral anticoagulation SNOMED Code(s): 852421100 Code(s): Z79.01 - [facility] (CURRENT) USE OF ANTICOAGULANTS Status: Chronic Current Visit: Yes - Problem List Review Problem List Initiated/Reviewed/Updated: Yes - My Orders Last 24 Hours: My Active Orders 01/01/19 21:00 Patient's Own Medication [Ptom] 1 each PO BEDTIME 01/02/19 09:00 Patient's Own Medication [Ptom] 2 each PO DAILY - Plan Plan:: This 68 year old male admitted with positive blood cultures and noted to have continued dyspnea and orthopnea 1. Positive blood cultures: Rule out bacteremia. Repeat BC no growth x 2 day. initial BC RANJIT still pending. Continue Vancomycin. Consider contaminate. 2. Suspected CAP: Improving. Continue Rocephin and Azithromycin day 4 of treatment. 3. Orthopnea: Feeling improved. Continue Bumex PO today. ECHO poor windows, recommend repeat with contrast, follow up with PCP. 4. JOSSELIN with CPAP: Educated on the necessity to wear CPAP every night to prevent cardiac risk. He verbalizes understanding. 5. DM Type 2: Hold PO meds. Continue Novolog SSI and monitor BS TIDAC. 6. Afib/fluter: Stable, rate controlled. Eliquis. Supplement potassium today, check Magnesium and supplement as needed. 7. HTN: Increased Amlodipine to 10 mg, BP improved. Monitor. VTE prophylaxis: Ena. Dispo: 1-2 days pending [facility].
[2019-01-02] MEDS: atorvaSTATin 20 MG Tab PO SCH (20:26)
[2019-01-03] MEDS ORDERED: Vancomycin 1.75 GM in Sodium Chloride 0.9% 500 ML IV SCH (04:15)
[2019-01-03 04:28] VITALS: BP 115/52
[2019-01-03] MEDS: Vancomycin 1.75 GM in Sodium Chloride 0.9% 500 ML IV SCH (04:40)
[2019-01-03] MEDS: Azithromycin 250 MG Tab PO SCH (08:25)
[2019-01-03] MEDS: Apixaban 5 MG Tab PO SCH (08:26)
[2019-01-03] MEDS: Potassium Chloride 10 MEQ Tab.ER PO SCH (08:27)
[2019-01-03] MEDS: Sertraline 50 MG Tab PO SCH (08:27)
[2019-01-03] MEDS: Insulin Aspart 100 Units/ML 3 ML Pen SUBCUT SCH (08:47)
[2019-01-03] MEDS: cefTRIAXone 1 GM in Premix Bag 1 BAG IV SCH (09:18)
--- NOTE | 2019-01-03 09:29 | PCM.DCSUM1 ---
Discharge Summary - Hospital Course Brief History: This 68 year old male with pmh of HTN, DM Types 2, Afib/flutter, and JOSSELIN was admitted directly after 06/29 BC returned positive. He was previously admitted for chest pain and ACS was ruled out. CT angio of chest revealed ground glass opacities to RUL and RML along with bibasilar atelectasis in which he as treated with Azithromycin and Rocephin. He reports the L sided sharp chest pain is nearly gone, only there when he takes a really deep breath. He reports some mild shortness of breath when he lies flat. reports some mild peripheral edema. He reports he only wears his CPAP after he feels like he isn' t getting a good nights sleep. He denies cough or fevers. He reports his pulse ox was reading 87-90% at home. He denies urinary concerns, reports constipation. Repeat labwork, WNL. CXR reveals cardiomegaly, otherwise no infiltrates. Repeat BC obtained on admission. He will be admitted for positive blood cultures. PCP, Dr Redd. Diagnosis: Stroke: No - Discharge Data Discharge Date: 01/03/19 Discharge Disposition: Home, Self-Care 01 Condition: Good - Discharge Diagnosis/Problem(s) (1) Positive blood culture SNOMED Code(s): 460308269 ICD Code: R78.81 - BACTEREMIA Status: Acute (2) Dyspnea SNOMED Code(s): 921882791 ICD Code: R06.00 - DYSPNEA, UNSPECIFIED Status: Acute Qualifiers: Dyspnea type: orthopnea Qualified Code(s): R06.01 - Orthopnea (3) Orthopnea SNOMED Code(s): 47808051 ICD Code: R06.01 - ORTHOPNEA Status: Acute (4) HTN (hypertension) SNOMED Code(s): 33910405 ICD Code: I10 - ESSENTIAL (PRIMARY) HYPERTENSION Status: Chronic (5) DM type 2 (diabetes mellitus, type 2) SNOMED Code(s): 25273969 ICD Code: E11.9 - TYPE 2 DIABETES MELLITUS WITHOUT COMPLICATIONS Status: Chronic Qualifiers: Diabetes mellitus terminal manager insulin use: with usp use Diabetes mellitus complication status: with circulatory complication (6) JOSSELIN on CPAP SNOMED Code(s): 92128961 ICD Code: G47.33 - OBSTRUCTIVE SLEEP APNEA (ADULT) (PEDIATRIC); Z99.89 - DEPENDENCE ON OTHER ENABLING MACHINES AND DEVICES Status: Chronic (7) Atrial fibrillation SNOMED Code(s): 44554503 ICD Code: I48.91 - UNSPECIFIED ATRIAL FIBRILLATION Status: Chronic (8) On continuous oral anticoagulation SNOMED Code(s): 327057980 ICD Code: Z79.01 - PULP PRESS TENDER (CURRENT) USE OF ANTICOAGULANTS Status: Chronic - Patient Instructions Diet: Heart Healthy Diet, Low Sodium Activity: As Tolerated Showering/Bathing: May Shower Notify Provider of: Fever, Increased Pain, Swelling and Redness, Drainage, Nausea and/or Vomiting - Discharge Plan *PRESCRIPTION DRUG MONITORING PROGRAM REVIEWED*: Not Applicable *COPY OF PRESCRIPTION DRUG MONITORING REPORT IN PATIENT NISH: Not Applicable Prescriptions/Med Rec: Apixaban [Eliquis] 5 mg PO BID #60 tablet Azithromycin [Zithromax] 250 mg PO Q24H #5 tablet Home Medications: Home Meds amLODIPine [Norvasc] 5 mg PO DAILY 01/09/15 [History] atorvaSTATin Calcium [Atorvastatin Calcium] 20 mg PO BEDTIME 01/09/15 [History] metFORMIN HCl [Metformin HCl] 1,000 mg PO BID 01/09/15 [History] Insulin Lispro [Humalog] 35 units SUBCUT BID 10/07/18 [History] Potassium Chloride [Klor-Con 10] 1 tab PO DAILY 12/29/18 [History] Sertraline [Zoloft] 1 tab PO DAILY 12/29/18 [History] Apixaban [Eliquis] 5 mg PO BID #60 tablet 12/30/18 [Rx] Bumetanide 1 mg PO DAILY 12/31/18 [History] Apixaban [Eliquis] 5 mg PO BID #60 tablet 01/03/19 [Rx] Azithromycin [Zithromax] 250 mg PO Q24H #5 tablet 01/03/19 [Rx] Patient Handouts: Azithromycin tablets, Bacteremia, Apixaban oral tablets Referrals: [facility] [Outside] Ruslan Redd MD [Physician] - 01/14/19 8:00 am - Discharge Summary/Plan Comment DC Time >30 min.: No Discharge Summary/Plan Comment: Admitting diagnoses Positive blood culture CAP Pleuritic pain Discharge Diagnoses: CAP bacteremia ruled out Afib- rate controlled Domo was admitted due to having blood cultures which returned positive / bottles. He was admitted and continued on Azithromycin and Vancomycin. He was noted to still be in Atrial fibrillation rate control. He was started on Eliquis for stroke prevention. BC were repeated and returned negative. Initial blood cultured returned to Staph simulans, suggestive of contaminate. During his stay he was diuresed with Bumex IV as he reported stopping his Bumex at home for up to 2 weeks. This helped with his lower leg edema and breathing concerns. ECHO was obtained but imaging was of poor quality and contrast Definity ECHO was recommended. He was instructed to follow up with PCP regarding during testing. He was encouraged to monitor salt intake, monitor his weight and to be complaint with Bumex at home. Also highly encouraged to use CPAP every night, not just when he feels he needs a good night sleep. He is to follow up with PCP in 1 week. Return to ED or clinic if concerns should arise. - General Info Date of Service: 01/03/19 Admission Dx/Problem (Free Text: Positive blood culture Subjective Update: Doing well today. No chest pain or SOB. Very eager to go home. Functional Status: Reports: Pain Controlled, Tolerating Diet, Ambulating, Urinating - Review of Systems General: Reports: No Symptoms HEENT: Reports: No Symptoms. Denies: Contact Lenses, Rhinitis, Visual Changes Pulmonary: Reports: No Symptoms. Denies: Shortness of Breath Cardiovascular: Reports: No Symptoms. Denies: Chest Pain Gastrointestinal: Reports: No Symptoms. Denies: Abdominal Pain, Nausea, Vomiting Musculoskeletal: Reports: No Symptoms Skin: Reports: No Symptoms Psychiatric: Reports: No Symptoms - Patient Data Vitals - Most Recent: Last Vital Signs Temp 97.1 F 01/03/19 08:18 Pulse 68 01/03/19 08:18 Resp 20 01/03/19 08:18 BP 115/52 L 01/03/19 08:18 Pulse Ox 93 L 01/03/19 08:18 Weight - Most Recent: 118.932 kg I&O - Last 24 hours: Intake & Output 01/02/19 01/03/19 01/03/19 22:59 06:59 14:59 Intake Total 805 350 Output Total 400 500 Balance 405 -150 Lab Results - Last 24 hrs: Laboratory Results - last 24 hr 07/10/19 07/10/19 07/10/19 Range/Units 11:22 16:18 21:16 POC Glucose 209 H 205 H 212 H (60-110) mg/dL Vancomycin Trough (5.0-10.0) ug/mL 01/03/19 01/03/19 Range/Units 03:25 06:36 POC Glucose 211 H (60-110) mg/dL Vancomycin Trough 3.7 L (5.0-10.0) ug/mL [facility]ENI Results - Last 24 hrs: Microbiology 12/31/18 05:20 Aerobic Blood Culture - Preliminary Blood - Venous - Lab Draw NO GROWTH AFTER 3 DAYS Anaerobic Blood Culture - Preliminary NO GROWTH AFTER 3 DAYS 12/31/18 04:46 Aerobic Blood Culture - Preliminary Blood - Venous NO GROWTH AFTER 3 DAYS Anaerobic Blood Culture - Preliminary NO GROWTH AFTER 3 DAYS Med Orders - Current: Current Medications Acetaminophen (Tylenol) 650 mg PO Q4H PRN PRN Reason: Pain (mild 1-3) Albuterol/Ipratropium (Duoneb 3.0-0.5 Mg/3 Ml) 3 ml NEB Q4HRRT PRN PRN Reason: Shortness Of Breath/wheezing Apixaban (Eliquis) 5 mg PO BID [facility] Last Admin: 01/03/19 08:26 Dose: 5 mg Azithromycin (Zithromax) 500 mg PO Q24H [facility] Last Admin: 01/03/19 08:25 Dose: 500 mg Ceftriaxone Sodium/Dextrose 1 (gm/ Premix) 50 mls @ 100 mls/hr IV Q24H [facility] Last Admin: 01/03/19 09:18 Dose: 100 mls/hr Vancomycin HCl 1.75 gm/ Sodium (Chloride) 500 mls @ 333.333 mls/hr IV Q12H [facility] Last Admin: 01/03/19 04:39 Dose: 333.333 mls/hr Insulin Aspart (Novolog) 0 unit SUBCUT TIDAC [facility]; Protocol Last Admin: 01/03/19 08:47 Dose: 4 units Ondansetron HCl (Zofran) 4 mg IVPUSH Q4H PRN PRN Reason: Nausea Potassium Chloride (10 Meq Tab.Er) 1 each PO DAILY [facility] Last Admin: 01/03/19 08:27 Dose: 1 each Atorvastatin 20 Mg (Tab) 1 each PO BEDTIME [facility] Last Admin: 01/02/19 20:26 Dose: 1 each Sertraline 50 Mg Tab 1 each PO DAILY [facility] Last Admin: 01/03/19 08:27 Dose: 1 each Amlodipine 5mg (Tablet) 2 each PO DAILY [facility] Last Admin: 01/03/19 08:26 Dose: 2 each Sodium Chloride (Saline Flush) 10 ml FLUSH ASDIRECTED PRN PRN Reason: Keep Vein Open Sodium Chloride (Saline Flush) 2.5 ml FLUSH ASDIRECTED PRN PRN Reason: Keep Vein Open Vancomycin HCl (Pharmacy To Dose - Vancomycin) 1 dose .XX ASDIRECTED [facility] Discontinued Medications Amlodipine Besylate (Norvasc) 5 mg PO DAILY [facility] Last Admin: 12/31/18 10:33 Dose: Not Given Amlodipine Besylate (Norvasc) 5 mg PO ONETIME ONE Stop: 01/01/19 16:22 Last Admin: 01/01/19 16:47 Dose: 5 mg Bumetanide (Bumex) 1 mg PO DAILY [facility] Last Admin: 12/31/18 10:33 Dose: Not Given Bumetanide (Bumex) 1 mg IVPUSH ONETIME ONE Stop: 12/31/18 09:18 Last Admin: 12/31/18 10:24 Dose: 1 mg Bumetanide (Bumex) 1 mg IVPUSH ONETIME ONE Stop: 01/01/19 08:37 Last Admin: 01/01/19 11:58 Dose: Not Given Bumetanide (Bumex) 1 mg IVPUSH ONETIME ONE Stop: 01/01/19 12:01 Last Admin: 01/01/19 11:51 Dose: 1 mg Vancomycin HCl 1.75 gm/ Sodium (Chloride) 500 mls @ 333.333 mls/hr IV Q24H [facility] Last Admin: 01/03/19 04:40 Dose: Not Given Atorvastatin 20 Mg (Tab) 20 each PO BEDTIME [facility] Last Admin: 12/31/18 21:08 Dose: 20 each Bumetanide 1 Mg Tab 1 each PO DAILY [facility] Last Admin: 01/01/19 08:16 Dose: 1 each Sertraline 50 Mg Tab 50 each PO DAILY [facility] Last Admin: 12/31/18 10:30 Dose: 50 each Amlodipine 5 Mg Tab 5 each PO DAILY [facility] Last Admin: 01/01/19 08:15 Dose: 5 each Amlodipine 5 Mg Tab 1 each PO DAILY [facility] Last Admin: 01/01/19 08:18 Dose: 1 each Potassium Chloride (Klor-Con 10) 10 meq PO DAILY [facility] Last Admin: 12/31/18 10:33 Dose: Not Given Potassium Chloride (Klor-Con M20) 20 meq PO ONETIME ONE Stop: 12/31/18 09:18 Last Admin: 12/31/18 10:22 Dose: 20 meq Potassium Chloride (Klor-Con M20) 20 meq PO ONETIME ONE Stop: 01/01/19 12:25 Last Admin: 01/01/19 13:59 Dose: 20 meq Sertraline HCl (Zoloft) 50 mg PO DAILY [facility] Last Admin: 12/31/18 10:33 Dose: Not Given - Exam Quality Assessment: Reports: DVT Prophylaxis. Denies: Supplemental Oxygen General: Reports: Alert, Oriented, Cooperative, No Acute Distress Neck: Reports: Supple Lungs: Reports: Clear to Auscultation, Normal Respiratory Effort Cardiovascular: Reports: Regular Rate, No Murmurs, Irregular Rhythm GI/Abdominal Exam: Normal Bowel Sounds, Soft, Non-Tender Extremities: Normal Inspection, Normal Range of Motion, Non-Tender, No Pedal Edema Wound/Incisions: Reports: Healing Well Neurological: Reports: No New Focal Deficit Psy/Mental Status: Reports: Alert, Normal Affect, Normal Mood
== END 2019-01-03 11:39 | disposition home or self-care (01) ==
LOC: UNDOADMOB 03:23 → MW.MS 03:23
PROVIDERS: ADMIT Internal Medicine; ATTEND Internal Medicine
DX: R78.81 Bacteremia (principal); J18.9 Pneumonia, unspecified organism; I10 Essential (primary) hypertension; I48.2 Chronic atrial fibrillation; E78.00 Pure hypercholesterolemia, unspecified; E11.9 Type 2 diabetes mellitus without complications; G47.33 Obstructive sleep apnea (adult) (pediatric); R06.00 Dyspnea, unspecified; R06.01 Orthopnea; E66.9 Obesity, unspecified; Z79.899 Other long term (current) drug therapy; Z79.4 Long term (current) use of insulin; Z79.01 Long term (current) use of anticoagulants; Z79.2 Long term (current) use of antibiotics; Z99.89 Dependence on other enabling machines and devices; Z68.41 Body mass index [BMI] 40.0-44.9, adult
CPT/HCPCS: 36415; 71046; 80048; 80202; 82962; 83735; 85025; 87040; 93005; 93306; 96365; 96366; 96367; 96375; 96376; A4217; A9270; G0378; J0696; J1815; J3370; J3490; J7040

== ENCOUNTER 2020-03-28 12:57 | Emergency (ER) | payer MEDICARE, BC, OTHER ==
--- NOTE | 2020-03-28 13:18 | EDM.PDOC ---
ED HPI GENERAL MEDICAL PROBLEM - General Chief Complaint: Respiratory Problem Stated Complaint: COVID Time Seen by Provider: 03/28/20 12:58 Source of Information: Reports: Patient History Limitations: Reports: No Limitations - History of Present Illness INITIAL COMMENTS - FREE TEXT/NARRATIVE: 69M PMHx HTN, DM2, Afib presents for SOB. Patient was diagnoed with COVID earlier this week. Has not noted any changes since then. Persistent SOB w/ exertion although feels OK at rest. Denies chest pain. +productive cough. Notes body aches. - Related Data Allergies Allergy/AdvReac Type Severity Reaction Status Date / Time No Known Allergies Allergy Verified 03/28/20 13:16 Home Meds: Home Meds amLODIPine [Norvasc] 5 mg PO DAILY 01/09/15 [History] atorvaSTATin Calcium [Atorvastatin Calcium] 20 mg PO BEDTIME 01/09/15 [History] metFORMIN HCl [Metformin HCl] 1,000 mg PO BID 01/09/15 [History] Insulin Lispro [Humalog] 35 units SUBCUT BID 10/07/18 [History] Potassium Chloride [Klor-Con 10] 1 tab PO DAILY 12/29/18 [History] Sertraline [Zoloft] 1 tab PO BID 12/29/18 [History] Bumetanide 1 mg PO DAILY 12/31/18 [History] Apixaban [Eliquis] 5 mg PO BID #60 tablet 01/03/19 [Rx] Minocycline [Minocin] 100 mg PO BID 03/28/20 [History] Past Medical History HEENT History: Reports: Other (See Below) Other HEENT History: upper partial Cardiovascular History: Reports: Afib, High Cholesterol, Hypertension Respiratory History: Reports: Sleep Apnea Other Respiratory History: "possible sleep apnea", unable to finish sleep apnea test- no CPAP mask Other Genitourinary History: urgency and frequency in urination Musculoskeletal History: Reports: None Neurological History: Reports: None Psychiatric History: Reports: None Endocrine/Metabolic History: Reports: Obesity/BMI 30+ Hematologic History: Reports: None Immunologic History: Reports: None Oncologic (Cancer) History: Reports: None Dermatologic History: Reports: None - Infectious Disease History Infectious Disease History: Reports: Chicken Pox - Past Surgical History Head Surgeries/Procedures: Reports: None GI Surgical History: Reports: Hernia Repair/Other Social & Family History - Family History Family Medical History: Noncontributory - Caffeine Use Caffeine Use: Reports: Coffee, Soda ED ROS GENERAL - Review of Systems Review Of Systems: Comprehensive ROS is negative, except as noted in HPI. ED EXAM, GENERAL - Physical Exam Exam: See Below Exam Limited By: No Limitations General Appearance: Alert, WD/WN, No Apparent Distress Ears: Normal External Exam Nose: Normal Inspection Throat/Mouth: Normal Inspection, Normal Voice, No Airway Compromise Head: Atraumatic, Normocephalic Neck: Normal Inspection Respiratory/Chest: No Respiratory Distress, Lungs Clear, Normal Breath Sounds, No Accessory Muscle Use Cardiovascular: Normal Peripheral Pulses, Regular Rate, Rhythm, No Edema Extremities: Normal Inspection Neurological: Alert Psychiatric: Normal Affect, Normal Mood Skin Exam: Warm, Dry, Intact, Normal Color Course - Vital Signs Last Recorded V/S: Last Vital Signs Temp 97.4 F 03/28/20 13:12 Pulse 75 03/28/20 13:12 Resp 16 03/28/20 13:12 BP 139/64 03/28/20 13:12 Pulse Ox 93 L 03/28/20 13:12 - Re-Assessments/Exams Free Text/Narrative Re-Assessment/Exam: 03/28/20 13:20 Normal vitals. Will get CXR to eval for covid pneumonia. 03/28/20 14:48 CXR unremarkable aside from subtle opacities consistent with COVID. VS remain stable. Will d/c with return precautions. Departure - Departure Time of Disposition: 14:49 Disposition: Home, Self-Care 01 Condition: Good Clinical Impression: COVID-19 - Discharge Information Instructions: COVID-19 Frequently Asked Questions, Prevent the Spread of COVID- 19 if You Are Sick - [facility] Referrals: PCP,None [Primary Care Provider] - Forms: ED Department Discharge Additional Instructions: The following information is given to patients seen in the emergency department who are being discharged to home. This information is to outline your options for follow-up care. We provide all patients seen in our emergency department with a follow-up referral. The need for follow-up, as well as the timing and circumstances, are variable depending upon the specifics of your emergency department visit. If you don't have a primary care physician on staff, we will provide you with a referral. We always advise you to contact your personal physician following an emergency department visit to inform them of the circumstance of the visit and for follow-up with them and/or the need for any referrals to a consulting specialist. The emergency department will also refer you to a specialist when appropriate. This referral assures that you have the opportunity for follow-up care with a specialist. All of these measure are taken in an effort to provide you with optimal care, which includes your follow-up. Under all circumstances we always encourage you to contact your private physi sonya who remains a resource for coordinating your care. When calling for follow- up care, please make the office aware that this follow-up is from your recent emergency room visit. If for any reason you are refused follow-up, please contact the [facility] Emergency Department at and asked to speak to the emergency department charge nurse. Please follow up with your primary care physician. If you do not have a primary care physician, see below: [facility] [address] [place] [id number] [facility] [address] [place] [id number] Sepsis Event Note (ED) - Evaluation Sepsis Screening Result: No Definite Risk - Focused Exam Vital Signs: Vital Signs Temp Pulse Resp BP Pulse Ox 03/28/20 13:12 97.4 F 75 16 139/64 93 L
--- NOTE | 2020-03-28 14:27 | CR ---
HISTORY: Shortness of breath. COVID-19 positive. COMPARISON: 12/31/2018. TECHNIQUE: Chest one-view. FINDINGS: Asymmetric interstitial type opacities, left greater than right. These are new from 12/31/2018. There is no focal consolidation. There is no pneumothorax. The central airway is normal. There is a paucity of abdominal bowel gas in the upper abdomen. Heart size and pulmonary vasculature are within normal limits given portable technique. IMPRESSION: Subtle, asymmetric interstitial type opacities, which are consist with the history of viral pneumonia. Dictated by Nathanael Rivera MD @ Mar 28 2020 2:24PM Signed by Dr. Nathanael Rivera @ Mar 28 2020 2:26PM
[2020-03-28 17:20] VITALS: BP 131/67; PULSE 66
== END 2020-03-28 15:13 | disposition home or self-care (01) ==
LOC: MW.ED 12:57
DX: U07.1 COVID-19 (principal); I10 Essential (primary) hypertension; I48.91 Unspecified atrial fibrillation; E11.9 Type 2 diabetes mellitus without complications; E78.00 Pure hypercholesterolemia, unspecified; E66.9 Obesity, unspecified; Z68.41 Body mass index [BMI] 40.0-44.9, adult; Z79.899 Other long term (current) drug therapy; Z79.4 Long term (current) use of insulin; Z79.01 Long term (current) use of anticoagulants
CPT/HCPCS: 71045; 71045-26; 99282; 99284-25

== ENCOUNTER 2020-12-19 11:11 | Inpatient (IN) | payer MEDICARE, BC ==
[2020-12-19] MEDS ORDERED: Meclizine 25 MG Tab PO ONE (11:33)
[2020-12-19] MEDS ORDERED: amLODIPine 5 MG Tab PO ONE (11:33)
--- NOTE | 2020-12-19 11:33 | EDM.PDOC ---
ED HPI GENERAL MEDICAL PROBLEM - General Chief Complaint: Gastrointestinal Problem Stated Complaint: DIZZY,VOMITING Time Seen by Provider: 12/19/20 11:21 Source of Information: Reports: Patient History Limitations: Reports: No Limitations - History of Present Illness INITIAL COMMENTS - FREE TEXT/NARRATIVE: Patient is a 70-year-old male who presents today for dizziness for the past 3 days. Patient dates that he has sensation of the room spinning whenever he gets up and moves around. Patient states that he still the dizziness resolves. Patient currently denies any chest pain vision changes numbness weakness was extremity or any confusion. Patient does have have history cannot remember the medication that he takes. Reports he did not take his meds more because he felt nauseous. - Related Data Allergies Allergy/AdvReac Type Severity Reaction Status Date / Time No Known Allergies Allergy Verified 12/19/20 11:41 Home Meds: Home Meds amLODIPine [Norvasc] 5 mg PO DAILY 01/09/15 [History] atorvaSTATin Calcium [Atorvastatin Calcium] 20 mg PO BEDTIME 01/09/15 [History] metFORMIN HCl [Metformin HCl] 1,000 mg PO BID 01/09/15 [History] Insulin Lispro [Humalog] 35 units SUBCUT BID 10/07/18 [History] Potassium Chloride [Klor-Con 10] 1 tab PO DAILY 12/29/18 [History] Sertraline [Zoloft] 1 tab PO BID 12/29/18 [History] Bumetanide 1 mg PO DAILY 12/31/18 [History] Apixaban [Eliquis] 5 mg PO BID #60 tablet 01/03/19 [Rx] Minocycline [Minocin] 100 mg PO BID 03/28/20 [History] Past Medical History HEENT History: Reports: Other (See Below) Other HEENT History: upper partial Cardiovascular History: Reports: Afib, High Cholesterol, Hypertension Respiratory History: Reports: Sleep Apnea Other Respiratory History: "possible sleep apnea", unable to finish sleep apnea test- no CPAP mask Other Genitourinary History: urgency and frequency in urination Musculoskeletal History: Reports: None Neurological History: Reports: None Psychiatric History: Reports: None Endocrine/Metabolic History: Reports: Obesity/BMI 30+ Hematologic History: Reports: None Immunologic History: Reports: None Oncologic (Cancer) History: Reports: None Dermatologic History: Reports: None - Infectious Disease History Infectious Disease History: Reports: Chicken Pox - Past Surgical History Head Surgeries/Procedures: Reports: None GI Surgical History: Reports: Hernia Repair/Other Social & Family History - Family History Family Medical History: No Pertinent Family History - Caffeine Use Caffeine Use: Reports: Coffee, Soda ED ROS GENERAL - Review of Systems Review Of Systems: See Below Constitutional: Reports: No Symptoms HEENT: Reports: No Symptoms Respiratory: Reports: No Symptoms Cardiovascular: Reports: No Symptoms Endocrine: Reports: No Symptoms GI/Abdominal: Reports: No Symptoms : Reports: No Symptoms Musculoskeletal: Reports: No Symptoms Skin: Reports: No Symptoms Neurological: Reports: Dizziness Psychiatric: Reports: No Symptoms Hematologic/Lymphatic: Reports: No Symptoms Immunologic: Reports: No Symptoms ED EXAM, DIZZINESS - Physical Exam Exam: See Below Exam Limited By: No Limitations General Appearance: Alert, WD/WN, No Apparent Distress Eye Exam: Bilateral Eye: EOMI, PERRL Nose: Normal Inspection Head Exam: Atraumatic, Normocephalic Vertigo: reproducible Respiratory/Chest: No Respiratory Distress, Lungs Clear, Normal Breath Sounds Cardiovascular: Normal Peripheral Pulses, Regular Rate, Rhythm, No Edema GI/Abdominal: Normal Bowel Sounds, Soft, Non-Tender Neurological: Alert, Normal Mood/Affect, Oriented x 3 Extremities: Normal Inspection #1 Interpretation EKG Date: 12/19/20 Time: 11:33 Rhythm: A-Fib Rate (Beats/Min): 58 ST-T: Normal Course - Vital Signs Last Recorded V/S: Last Vital Signs Temp 96.9 F 12/19/20 11:42 Pulse 52 L 12/19/20 12:56 Resp 18 12/19/20 12:56 BP 163/77 H 12/19/20 12:56 Pulse Ox 94 L 12/19/20 12:56 - Orders/Labs/Meds Orders: Active Orders 24 hr Category Date Time Status Patient Status [ADT] Routine ADT 12/19/20 14:14 Ordered TROPONIN I [CHEM] Stat Lab 12/19/20 11:48 Received UA W/LENI RFLX IF INDICATED [URIN] Stat Lab 12/19/20 11:30 Ordered Labs: Laboratory Tests 12/19/20 12/19/20 12/19/20 Range/Units 11:48 11:48 11:48 WBC 9.87 (4.0-11.0) K/uL RBC 4.26 L (4.50-5.90) M/uL Hgb 13.5 (13.0-17.0) g/dL Hct 40.0 (38.0-50.0) % MCV 93.9 (80.0-98.0) fL MCH 31.7 (27.0-32.0) pg MCHC 33.8 (31.0-37.0) g/dL RDW Std Deviation 44.0 (28.0-62.0) fl RDW Coeff of Ash 13 (11.0-15.0) % Plt Count 284 (150-400) K/uL MPV 8.90 (7.40-12.00) fL Neut % (Auto) 85.5 H (48.0-80.0) % Lymph % (Auto) 7.7 L (16.0-40.0) % [place] % (Auto) 6.2 (0.0-15.0) % Eos % (Auto) 0.5 (0.0-7.0) % Baso % (Auto) 0.1 (0.0-1.5) % Neut # (Auto) 8.4 H (1.4-5.7) K/uL Lymph # (Auto) 0.8 (0.6-2.4) K/uL [place] # (Auto) 0.6 (0.0-0.8) K/uL Eos # (Auto) 0.1 (0.0-0.7) K/uL Baso # (Auto) 0.0 (0.0-0.1) K/uL INR 1.14 APTT 28.3 (18.6-31.3) SEC Sodium 142 (136-148) mmol/L Potassium 3.6 (3.5-5.1) mmol/L Chloride 105 (98-107) mmol/L Carbon Dioxide 26.8 (21.0-32.0) mmol/L BUN 13 (7.0-18.0) mg/dL Creatinine 0.9 (0.8-1.3) mg/dL Est Cr Clr Drug Dosing 67.94 mL/min Estimated GFR (MDRD) > 60.0 ml/min Glucose 152 H (74-106) mg/dL Calcium 8.4 L (8.5-10.1) mg/dL Phosphorus 3.2 (2.6-4.7) mg/dL Magnesium 1.6 L (1.8-2.4) mg/dL Total Bilirubin 1.1 H (0.2-1.0) mg/dL AST 8 L (15-37) IU/L ALT 19 (14-63) IU/L Alkaline Phosphatase 100 (46-116) U/L Creatine Kinase 68 (26-308) U/L Troponin I < 0.050 (0.000-0.056) ng/mL Total Protein 6.8 (6.4-8.2) g/dL Albumin 3.4 (3.4-5.0) g/dL Globulin 3.4 (2.6-4.0) g/dL Albumin/Globulin Ratio 1.0 (0.9-1.6) Lipase 36 L (73-393) U/L SARS-CoV-2 RNA (ALLYSSA) (NEGATIVE) 12/19/20 Range/Units 13:15 WBC (4.0-11.0) K/uL RBC (4.50-5.90) M/uL Hgb (13.0-17.0) g/dL Hct (38.0-50.0) % MCV (80.0-98.0) fL MCH (27.0-32.0) pg MCHC (31.0-37.0) g/dL RDW Std Deviation (28.0-62.0) fl RDW Coeff of Ash (11.0-15.0) % Plt Count (150-400) K/uL MPV (7.40-12.00) fL Neut % (Auto) (48.0-80.0) % Lymph % (Auto) (16.0-40.0) % [place] % (Auto) (0.0-15.0) % Eos % (Auto) (0.0-7.0) % Baso % (Auto) (0.0-1.5) % Neut # (Auto) (1.4-5.7) K/uL Lymph # (Auto) (0.6-2.4) K/uL [place] # (Auto) (0.0-0.8) K/uL Eos # (Auto) (0.0-0.7) K/uL Baso # (Auto) (0.0-0.1) K/uL INR APTT (18.6-31.3) SEC Sodium (136-148) mmol/L Potassium (3.5-5.1) mmol/L Chloride (98-107) mmol/L Carbon Dioxide (21.0-32.0) mmol/L BUN (7.0-18.0) mg/dL Creatinine (0.8-1.3) mg/dL Est Cr Clr Drug Dosing mL/min Estimated GFR (MDRD) ml/min Glucose (74-106) mg/dL Calcium (8.5-10.1) mg/dL Phosphorus (2.6-4.7) mg/dL Magnesium (1.8-2.4) mg/dL Total Bilirubin (0.2-1.0) mg/dL AST (15-37) IU/L ALT (14-63) IU/L Alkaline Phosphatase (46-116) U/L Creatine Kinase (26-308) U/L Troponin I (0.000-0.056) ng/mL Total Protein (6.4-8.2) g/dL Albumin (3.4-5.0) g/dL Globulin (2.6-4.0) g/dL Albumin/Globulin Ratio (0.9-1.6) Lipase (73-393) U/L SARS-CoV-2 RNA (ALLYSSA) NEGATIVE (NEGATIVE) Meds: Medications Discontinued Medications Generic Name Dose Route Start Last Admin Trade Name Freq PRN Reason Stop Dose Admin Amlodipine Besylate 5 mg 12/19/20 11:33 12/19/20 12:03 Amlodipine 5 Mg Tab PO 12/19/20 11:34 Not Given ONETIME ONE Meclizine HCl 25 mg 12/19/20 11:33 12/19/20 11:56 Meclizine 25 Mg Tab PO 12/19/20 11:34 25 mg ONETIME ONE Administration Departure - Departure Time of Disposition: 14:14 Disposition: Admitted As Inpatient 65 Condition: Good Clinical Impression: Bradycardia - Discharge Information Referrals: Ruslan Redd MD [Primary Care Provider] - Forms: ED Department Discharge Sepsis Event Note (ED) - Focused Exam Vital Signs: Vital Signs Temp Pulse Resp BP Pulse Ox 12/19/20 12:56 52 L 18 163/77 H 94 L 12/19/20 12:26 54 L 18 176/80 H 94 L 12/19/20 11:54 59 L 18 155/61 H 94 L 12/19/20 11:42 96.9 F 61 20 210/90 H 94 L - My Orders Last 24 Hours: My Active Orders 12/19/20 11:30 UA W/LENI RFLX IF INDICATED [URIN] Stat 12/19/20 11:48 TROPONIN I [CHEM] Stat 12/19/20 14:14 Patient Status [ADT] Routine - Assessment/Plan Last 24 Hours: My Active Orders 12/19/20 11:30 UA W/LENI RFLX IF INDICATED [URIN] Stat 12/19/20 11:48 TROPONIN I [CHEM] Stat 12/19/20 14:14 Patient Status [ADT] Routine Plan: Patient is a 70-year-old male who presents today for dizziness for the past 3 days. This is reproducible on exam. Will obtain labs CT give meclizine and reassess.
[2020-12-19 12:33] LABS: BLOOD UREA NITROGEN,BUN 13 mg/dL (7.0-18.0); CARBON DIOXIDE,CO2 26.8 mmol/L (21.0-32.0); CHLORIDE,CL 105 mmol/L (98-107); GLUCOSE RANDOM 152 mg/dL (74-106); LIPASE 36 U/L (73-393); POTASSIUM,K 3.6 mmol/L (3.5-5.1); SODIUM,NA 142 mmol/L (136-148)
--- NOTE | 2020-12-19 12:57 | CR ---
INDICATION: Dizziness of unknown etiology for 2 days. TECHNIQUE: Upright portable AP image. COMPARISON: 03/28/2020. FINDINGS: Lungs low in volume, clear. No pleural effusion. Heart, mediastinum and pulmonary vessels within normal limits, allowing for the shallow inspiration. No significant osseous abnormality. IMPRESSION: Negative, allowing for low lung volumes. Dictated by Kolton Sanders MD @ 12/19/2020 12:56:[address] Kolton Sanders @ Dec 19 2020 12:56PM
--- NOTE | 2020-12-19 13:03 | CT ---
DATE: 12/19/2020. CLINICAL HISTORY: Patient with dizziness for 2 days. TECHNIQUE: Standard helical CT image acquisition of the brain was performed. COMPARISON: None available. FINDINGS: There is no intracranial hemorrhage. No extra-axial collection, mass effect, or midline shift. Patchy hypoattenuation within the white matter of both hemispheres likely reflects sequela of chronic small vessel ischemia. Scattered intracranial atherosclerotic calcification. Ventricles are normal in size and morphology for patient age. The calvarium is unremarkable. There is apparent bilateral proptosis. Right gaze deviation is noted. Small presumed mucous retention cyst within the maxillary sinus. The mastoid air cells are unremarkable. The soft tissues are unremarkable. IMPRESSION: 1. No CT evidence of acute intracranial abnormality. 2. Findings most consistent with sequela of chronic small vessel ischemia. 3. Apparent bilateral proptosis. Please note that all CT scans at this facility use dose modulation, iterative reconstruction, and/or weight-based dosing when appropriate to reduce radiation dose to as low as reasonably achievable. Dictated by Jonathan Rosas MD @ 12/19/2020 1:02:[address] Jonathan Rosas @ Dec 19 2020 1:02PM
[2020-12-19] MEDS ORDERED: Ondansetron 4 MG/2 ML SDV IVPUSH PRN (16:38)
[2020-12-19] MEDS ORDERED: Albuterol/Ipratropium 3.0-0.5 MG/3 ML Neb Soln NEB PRN (16:38)
[2020-12-19] MEDS ORDERED: Acetaminophen 325 MG Tab PO PRN (16:38)
[2020-12-19] MEDS ORDERED: Magnesium Sulfate/Water 2 GM in Premix Bag 1 BAG IV SCH (16:40)
[2020-12-19] MEDS ORDERED: Potassium Chloride 20 MEQ Tab.ER PO ONE (16:41)
[2020-12-19] MEDS ORDERED: 50% Dextrose in Water 50 ML Syringe IVPUSH PRN (16:42)
[2020-12-19] MEDS ORDERED: Glucagon,Human Recombinant 1 MG Vial IM PRN (16:42)
--- NOTE | 2020-12-19 16:48 | PCM.HP.2 ---
H&P History of Present Illness - General Date of Service: 12/19/20 Admit Problem/Dx: Admission Diagnosis/Problem Admission Diagnosis/Problem Bradycardia - History of Present Illness Initial Comments - Free Text/Narative: 69M PMHx HTN, DM2, Afib presents today for dizziness for the past 3 days. Patient states he has been feeling dizzy and lightheaded for past few days. He feels the whole room is spinning. Patient currently denies any chest pain,sob, vision changes numbness weakness was extremity or any confusion. He also c/o of some nausea. Patients troponin was negative, his ekg showed sinus bradycardia. P atient states his oral intake of fluid has not been optimal and he has been working in hot sun last few days. Patient was admitted for further management. - Related Data Allergies/Adverse Reactions: Allergies Allergy/AdvReac Type Severity Reaction Status Date / Time No Known Allergies Allergy Verified 12/19/20 18:08 Home Medications: Home Meds amLODIPine [Norvasc] 5 mg PO DAILY 01/09/15 [History] atorvaSTATin Calcium [Atorvastatin Calcium] 40 mg PO BEDTIME 01/09/15 [History] metFORMIN HCl [Metformin HCl] 1,000 mg PO BID 01/09/15 [History] Insulin Lispro [Humalog] 35 units SUBCUT BID 10/07/18 [History] Potassium Chloride [Klor-Con 10] 1 tab PO DAILY 12/29/18 [History] Sertraline [Zoloft] 2 tab PO DAILY 12/29/18 [History] Bumetanide 1 mg PO DAILY 12/31/18 [History] Apixaban [Eliquis] 5 mg PO BID #60 tablet 01/03/19 [Rx] Past Medical History HEENT History: Reports: Other (See Below) Other HEENT History: upper partial Cardiovascular History: Reports: Afib, High Cholesterol, Hypertension Respiratory History: Reports: Sleep Apnea Other Respiratory History: "possible sleep apnea", unable to finish sleep apnea test- no CPAP mask Other Genitourinary History: urgency and frequency in urination Musculoskeletal History: Reports: None Neurological History: Reports: None Psychiatric History: Reports: None Endocrine/Metabolic History: Reports: Obesity/BMI 30+ Hematologic History: Reports: None Immunologic History: Reports: None Oncologic (Cancer) History: Reports: None Dermatologic History: Reports: None - Infectious Disease History Infectious Disease History: Reports: Chicken Pox - Past Surgical History Head Surgeries/Procedures: Reports: None GI Surgical History: Reports: Hernia Repair/Other Social & Family History - Family History Family Medical History: No Pertinent Family History - Tobacco Use Tobacco Use Status *Q: Never Tobacco User Second Hand Smoke Exposure: No - Caffeine Use Caffeine Use: Reports: Coffee, Soda - Recreational Drug Use Recreational Drug Use: No H&P Review of Systems - Review of Systems: Review Of Systems: See Below General: Reports: Weakness. Denies: Fever, Chills, Malaise Pulmonary: Denies: Shortness of Breath, Cough Cardiovascular: Reports: Lightheadedness, Syncope. Denies: Chest Pain, Palpitations, Dyspnea on Exertion, Blood Pressure Problem Gastrointestinal: Reports: Abdominal Pain, Anorexia, Nausea. Denies: Black S tool, Bloody Stool, Hematemesis, Hematochezia, Vomiting Genitourinary: Reports: Frequency. Denies: Burning, Pain Musculoskeletal: Denies: Neck Pain, Shoulder Pain, Arm Pain, Back Pain Skin: Denies: Jaundice, Pallor, Diaphoresis Psychiatric: Denies: Depression, Mood Lability, Anxiety Neurological: Reports: Dizziness. Denies: Confusion, Headache, Numbness, Paresthesia, Trouble Speaking, Difficulty Walking Exam - Exam Exam: See Below - Vital Signs Vital Signs: Last Vital Signs Temp 36.1 C 12/19/20 11:42 Pulse 56 L 12/19/20 15:47 Resp 18 12/19/20 15:47 BP 161/80 H 12/19/20 15:47 Pulse Ox 94 L 12/19/20 15:47 Weight: 127.006 kg - Exam General: Alert, Oriented, Cooperative Neck: Supple Lungs: Clear to Auscultation, Normal Respiratory Effort Cardiovascular: Regular Rate, Regular Rhythm, Normal S1, Normal S2, Bradycardia GI/Abdominal Exam: Normal Bowel Sounds, Soft, Non-Tender - Patient Data Lab Results Last 24 hrs: Laboratory Results - last 24 hr 12/19/20 12/19/20 12/19/20 Range/Units 11:48 11:48 11:48 WBC 9.87 (4.0-11.0) K/uL RBC 4.26 L (4.50-5.90) M/uL Hgb 13.5 (13.0-17.0) g/dL Hct 40.0 (38.0-50.0) % MCV 93.9 (80.0-98.0) fL MCH 31.7 (27.0-32.0) pg MCHC 33.8 (31.0-37.0) g/dL RDW Std Deviation 44.0 (28.0-62.0) fl RDW Coeff of Ash 13 (11.0-15.0) % Plt Count 284 (150-400) K/uL MPV 8.90 (7.40-12.00) fL Neut % (Auto) 85.5 H (48.0-80.0) % Lymph % (Auto) 7.7 L (16.0-40.0) % [place] % (Auto) 6.2 (0.0-15.0) % Eos % (Auto) 0.5 (0.0-7.0) % Baso % (Auto) 0.1 (0.0-1.5) % Neut # (Auto) 8.4 H (1.4-5.7) K/uL Lymph # (Auto) 0.8 (0.6-2.4) K/uL [place] # (Auto) 0.6 (0.0-0.8) K/uL Eos # (Auto) 0.1 (0.0-0.7) K/uL Baso # (Auto) 0.0 (0.0-0.1) K/uL INR 1.14 APTT 28.3 (18.6-31.3) SEC Sodium 142 (136-148) mmol/L Potassium 3.6 (3.5-5.1) mmol/L Chloride 105 (98-107) mmol/L Carbon Dioxide 26.8 (21.0-32.0) mmol/L BUN 13 (7.0-18.0) mg/dL Creatinine 0.9 (0.8-1.3) mg/dL Est Cr Clr Drug Dosing 67.94 mL/min Estimated GFR (MDRD) > 60.0 ml/min Glucose 152 H (74-106) mg/dL POC Glucose (70-99) mg/dL Calcium 8.4 L (8.5-10.1) mg/dL Phosphorus 3.2 (2.6-4.7) mg/dL Magnesium 1.6 L (1.8-2.4) mg/dL Total Bilirubin 1.1 H (0.2-1.0) mg/dL AST 8 L (15-37) IU/L ALT 19 (14-63) IU/L Alkaline Phosphatase 100 (46-116) U/L Creatine Kinase 68 (26-308) U/L Troponin I < 0.050 (0.000-0.056) ng/mL Total Protein 6.8 (6.4-8.2) g/dL Albumin 3.4 (3.4-5.0) g/dL Globulin 3.4 (2.6-4.0) g/dL Albumin/Globulin Ratio 1.0 (0.9-1.6) Lipase 36 L (73-393) U/L SARS-CoV-2 RNA (ALLYSSA) (NEGATIVE) 12/19/20 12/19/20 12/19/20 Range/Units 11:48 13:15 14:51 WBC (4.0-11.0) K/uL RBC (4.50-5.90) M/uL Hgb (13.0-17.0) g/dL Hct (38.0-50.0) % MCV (80.0-98.0) fL MCH (27.0-32.0) pg MCHC (31.0-37.0) g/dL RDW Std Deviation (28.0-62.0) fl RDW Coeff of Ash (11.0-15.0) % Plt Count (150-400) K/uL MPV (7.40-12.00) fL Neut % (Auto) (48.0-80.0) % Lymph % (Auto) (16.0-40.0) % [place] % (Auto) (0.0-15.0) % Eos % (Auto) (0.0-7.0) % Baso % (Auto) (0.0-1.5) % Neut # (Auto) (1.4-5.7) K/uL Lymph # (Auto) (0.6-2.4) K/uL [place] # (Auto) (0.0-0.8) K/uL Eos # (Auto) (0.0-0.7) K/uL Baso # (Auto) (0.0-0.1) K/uL INR APTT (18.6-31.3) SEC Sodium (136-148) mmol/L Potassium (3.5-5.1) mmol/L Chloride (98-107) mmol/L Carbon Dioxide (21.0-32.0) mmol/L BUN (7.0-18.0) mg/dL Creatinine (0.8-1.3) mg/dL Est Cr Clr Drug Dosing mL/min Estimated GFR (MDRD) ml/min Glucose (74-106) mg/dL POC Glucose (70-99) mg/dL Calcium (8.5-10.1) mg/dL Phosphorus (2.6-4.7) mg/dL Magnesium (1.8-2.4) mg/dL Total Bilirubin (0.2-1.0) mg/dL AST (15-37) IU/L ALT (14-63) IU/L Alkaline Phosphatase (46-116) U/L Creatine Kinase (26-308) U/L Troponin I < 0.050 < 0.050 (0.000-0.056) ng/mL Total Protein (6.4-8.2) g/dL Albumin (3.4-5.0) g/dL Globulin (2.6-4.0) g/dL Albumin/Globulin Ratio (0.9-1.6) Lipase (73-393) U/L SARS-CoV-2 RNA (ALLYSSA) NEGATIVE (NEGATIVE) 12/19/20 Range/Units 15:57 WBC (4.0-11.0) K/uL RBC (4.50-5.90) M/uL Hgb (13.0-17.0) g/dL Hct (38.0-50.0) % MCV (80.0-98.0) fL MCH (27.0-32.0) pg MCHC (31.0-37.0) g/dL RDW Std Deviation (28.0-62.0) fl RDW Coeff of Ash (11.0-15.0) % Plt Count (150-400) K/uL MPV (7.40-12.00) fL Neut % (Auto) (48.0-80.0) % Lymph % (Auto) (16.0-40.0) % [place] % (Auto) (0.0-15.0) % Eos % (Auto) (0.0-7.0) % Baso % (Auto) (0.0-1.5) % Neut # (Auto) (1.4-5.7) K/uL Lymph # (Auto) (0.6-2.4) K/uL [place] # (Auto) (0.0-0.8) K/uL Eos # (Auto) (0.0-0.7) K/uL Baso # (Auto) (0.0-0.1) K/uL INR APTT (18.6-31.3) SEC Sodium (136-148) mmol/L Potassium (3.5-5.1) mmol/L Chloride (98-107) mmol/L Carbon Dioxide (21.0-32.0) mmol/L BUN (7.0-18.0) mg/dL Creatinine (0.8-1.3) mg/dL Est Cr Clr Drug Dosing mL/min Estimated GFR (MDRD) ml/min Glucose (74-106) mg/dL POC Glucose 112 H (70-99) mg/dL Calcium (8.5-10.1) mg/dL Phosphorus (2.6-4.7) mg/dL Magnesium (1.8-2.4) mg/dL Total Bilirubin (0.2-1.0) mg/dL AST (15-37) IU/L ALT (14-63) IU/L Alkaline Phosphatase (46-116) U/L Creatine Kinase (26-308) U/L Troponin I (0.000-0.056) ng/mL Total Protein (6.4-8.2) g/dL Albumin (3.4-5.0) g/dL Globulin (2.6-4.0) g/dL Albumin/Globulin Ratio (0.9-1.6) Lipase (73-393) U/L SARS-CoV-2 RNA (ALLYSSA) (NEGATIVE) Result Diagrams: 12/19/20 11:48 12/19/20 11:48 Sepsis Event Note - Evaluation Sepsis Screening Result: No Definite Risk - Focused Exam Vital Signs: Vital Signs Temp Pulse Resp BP Pulse Ox 12/19/20 15:47 56 L 18 161/80 H 94 L 12/19/20 14:56 50 L 16 153/73 H 96 12/19/20 14:26 45 L 17 144/82 H 94 L 12/19/20 13:56 47 L 18 158/66 H 94 L 12/19/20 13:26 52 L 17 158/77 H 94 L 12/19/20 12:56 52 L 18 163/77 H 94 L 12/19/20 12:26 54 L 18 176/80 H 94 L 12/19/20 11:54 59 L 18 155/61 H 94 L 12/19/20 11:42 36.1 C 61 20 210/90 H 94 L - Problem List (1) Bradycardia SNOMED Code(s): 08245046 ICD Code: R00.1 - BRADYCARDIA, UNSPECIFIED Status: Acute Current Visit: Yes (2) Atrial fibrillation SNOMED Code(s): 58205785 ICD Code: I48.91 - UNSPECIFIED ATRIAL FIBRILLATION Status: Chronic Current Visit: No (3) DM type 2 (diabetes mellitus, type 2) SNOMED Code(s): 97136375 ICD Code: E11.9 - TYPE 2 DIABETES MELLITUS WITHOUT COMPLICATIONS Status: Chronic Current Visit: No Qualifiers: Diabetes mellitus [facility] insulin use: with [facility] use Diabetes mellitus complication status: with circulatory complication (4) HTN (hypertension) SNOMED Code(s): 98379809 ICD Code: I10 - ESSENTIAL (PRIMARY) HYPERTENSION Status: Chronic Current Visit: No (5) JOSSELIN on CPAP SNOMED Code(s): 20768557 ICD Code: G47.33 - OBSTRUCTIVE SLEEP APNEA (ADULT) (PEDIATRIC); Z99.89 - DEPENDENCE ON OTHER ENABLING MACHINES AND DEVICES Status: Chronic Current Visit: No Problem List Initiated/Reviewed/Updated: Yes Orders Last 24hrs: Active Orders 24 hr Category Date Time Status Patient Status [ADT] Routine ADT 12/19/20 14:14 Active Ambulate [RC] ASDIRECTED Care 12/19/20 16:38 Active Antiembolic Devices [RC] PER UNIT ROUTINE Care 12/19/20 16:39 Active CPAP Adult [RT BiPAP/CPAP] [RC] ASDIRECTED Care 12/19/20 16:46 Active Oxygen Therapy [RC] PRN Care 12/19/20 16:38 Active Pulse Oximetry [RC] PRN Care 12/19/20 16:38 Active RT Aerosol Therapy [RC] ASDIRECTED Care 12/19/20 16:39 Active Telemetry Monitoring [Cardiac Monitoring] [RC] Q8H Care 12/19/20 15:31 Active VTE/DVT Education [RC] PER UNIT ROUTINE Care 12/19/20 16:38 Active Vital Signs [RC] Q4H Care 12/19/20 16:38 Active [employer] Diet [DIET] Diet 12/19/20 Dinner Active TSH [CHEM] Routine Lab 12/19/20 14:51 Received UA W/LENI RFLX IF INDICATED [URIN] Stat Lab 12/19/20 11:30 Ordered Acetaminophen [TylenoL] Med 12/19/20 16:38 Active 650 mg PO Q4H PRN Albuterol/Ipratropium [DuoNeb 3.0-0.5 MG/3 ML] Med 12/19/20 16:38 Active 3 ml NEB Q4HRRT PRN Apixaban [Eliquis] Med 12/19/20 21:00 Ordered 5 mg PO BID Dextrose 50% in Water Med 12/19/20 16:42 Active 50 ml IVPUSH ASDIRECTED PRN Glucagon,Human Recombinant [GlucaGen] Med 12/19/20 16:42 Active 1 mg IM ASDIRECTED PRN Insulin Aspart [NovoLOG] Med 12/19/20 17:00 Active See Protocol SUBCUT TIDAC Lactated Ringers [Ringers, Lactated] 1,000 ml Med 12/19/20 16:45 Active IV ASDIRECTED Magnesium Sulfate/Water [Magnesium Sulfate in Water 2 Med 12/19/20 16:40 Active GM/50 ML] 2 gm Premix Bag 1 bag IV Q4H Ondansetron [Zofran] Med 12/19/20 16:38 Active 4 mg IVPUSH Q4H PRN atorvaSTATin [Lipitor] Med 12/19/20 21:00 Ordered 20 mg PO BEDTIME Sequential Compression Device [OM.PC] Per Unit Routine Oth 12/19/20 16:38 Ordered Resuscitation Status Routine Resus Stat 12/19/20 16:38 Ordered Medication Orders Acetaminophen (Acetaminophen 325 Mg Tab) 650 mg PO Q4H PRN PRN Reason: Pain (Mild 1-3)/fever Albuterol/Ipratropium (Albuterol/Ipratropium 3.0-0.5 Mg/3 Ml Neb Soln) 3 ml NEB Q4HRRT PRN PRN Reason: Shortness Of Breath/wheezing Apixaban (Apixaban 5 Mg Tab) 5 mg PO BID [facility] Atorvastatin Calcium (Atorvastatin 20 Mg Tab) 20 mg PO BEDTIME [facility] Dextrose/Water (50% Dextrose In Water 50 Ml Syringe) 50 ml IVPUSH ASDIRECTED PRN PRN Reason: Hypoglycemia Glucagon (Glucagon,Human Recombinant 1 Mg Vial) 1 mg IM ASDIRECTED PRN PRN Reason: Hypoglycemia Lactated Ringer's (Ringers, Lactated) 1,000 mls @ 125 mls/hr IV ASDIRECTED [facility]YSTAL Magnesium Sulfate 2 gm/ Premix 50 mls @ 12.5 mls/hr IV Q4H [facility]YSTAL Stop: 12/19/20 20:39 Insulin Aspart (Insulin Aspart 100 Units/Ml 3 Ml Pen) 0 unit SUBCUT TIDAC [facility]; Protocol Ondansetron HCl (Ondansetron 4 Mg/2 Ml Sdv) 4 mg IVPUSH Q4H PRN PRN Reason: Nausea/Vomiting Assessment/Plan Comment:: 70 y/o M admitted for lightheadedness, dizziness Sinus bradycardia noted trend another set of troponin start IV fluids for hydration Hold all AV blocking meds Monitor and replete Mg and K DuoNebs as needed Check TSH SSI Resume home meds as appropriate including anticoagulation
[2020-12-19] MEDS: Lactated Ringers 1,000 ML IV SCH (16:53)
[2020-12-19] MEDS: Insulin Aspart 100 Units/ML 3 ML Pen SUBCUT SCH (17:50)
[2020-12-19] MEDS ORDERED: Sertraline 50 MG Tab PO SCH (21:00)
[2020-12-19] MEDS: Apixaban 5 MG Tab PO SCH (21:52)
[2020-12-19] MEDS: atorvaSTATin 20 MG Tab PO SCH (21:52)
[2020-12-20] MEDS: Lactated Ringers 1,000 ML IV SCH ×2 (01:03→09:09)
[2020-12-20] MEDS ORDERED: metroNIDAZOLE/Normal Saline 0 ML ONE (01:13)
[2020-12-20 08:04] LABS: BLOOD UREA NITROGEN,BUN 13 mg/dL (7.0-18.0); CARBON DIOXIDE,CO2 28.8 mmol/L (21.0-32.0); CHLORIDE,CL 108 mmol/L (98-107); GLUCOSE RANDOM 140 mg/dL (74-106); POTASSIUM,K 3.9 mmol/L (3.5-5.1); SODIUM,NA 142 mmol/L (136-148)
[2020-12-20] MEDS: Insulin Aspart 100 Units/ML 3 ML Pen SUBCUT SCH ×3 (08:28→17:47)
[2020-12-20] MEDS: Apixaban 5 MG Tab PO SCH ×2 (08:56→21:34)
--- NOTE | 2020-12-20 09:24 | PCM.PN ---
<Ashley Matson - Last Filed: 12/20/20 14:21> - General Info Date of Service: 12/20/20 Admission Dx/Problem (Free Text): Admission Diagnosis/Problem Admission Diagnosis/Problem Bradycardia Subjective Update: Patient seen at bedside this morning, resting comfortably. There were no overnight events, this morning he continues to have a low heart rate therefore we held his diltiazem however states that he has been resting comfortably denies any dizziness this morning or palpitations. Functional Status: Reports: Pain Controlled, Tolerating Diet, Urinating - Review of Systems General: Reports: No Symptoms HEENT: Reports: No Symptoms Pulmonary: Reports: No Symptoms Cardiovascular: Reports: No Symptoms Gastrointestinal: Reports: No Symptoms Genitourinary: Reports: No Symptoms Musculoskeletal: Reports: No Symptoms Skin: Reports: No Symptoms Neurological: Reports: No Symptoms Psychiatric: Reports: No Symptoms - Patient Data Vitals - Most Recent: Last Vital Signs Temp 97.6 F 12/20/20 07:54 Pulse 45 L 12/20/20 07:54 Resp 18 12/20/20 07:54 BP 141/65 H 12/20/20 07:54 Pulse Ox 95 12/20/20 07:54 Weight - Most Recent: 127.006 kg I&O - Last 24 Hours: Intake & Output 12/19/20 12/20/20 12/20/20 22:59 06:59 14:59 Intake Total 1766 Output Total 800 Balance 966 Lab Results Last 24 Hours: Laboratory Results - last 24 hr 12/19/20 12/19/20 12/19/20 Range/Units 11:48 11:48 11:48 WBC 9.87 (4.0-11.0) K/uL RBC 4.26 L (4.50-5.90) M/uL Hgb 13.5 (13.0-17.0) g/dL Hct 40.0 (38.0-50.0) % MCV 93.9 (80.0-98.0) fL MCH 31.7 (27.0-32.0) pg MCHC 33.8 (31.0-37.0) g/dL RDW Std Deviation 44.0 (28.0-62.0) fl RDW Coeff of Ash 13 (11.0-15.0) % Plt Count 284 (150-400) K/uL MPV 8.90 (7.40-12.00) fL Neut % (Auto) 85.5 H (48.0-80.0) % Lymph % (Auto) 7.7 L (16.0-40.0) % Greer % (Auto) 6.2 (0.0-15.0) % Eos % (Auto) 0.5 (0.0-7.0) % Baso % (Auto) 0.1 (0.0-1.5) % Neut # (Auto) 8.4 H (1.4-5.7) K/uL Lymph # (Auto) 0.8 (0.6-2.4) K/uL Greer # (Auto) 0.6 (0.0-0.8) K/uL Eos # (Auto) 0.1 (0.0-0.7) K/uL Baso # (Auto) 0.0 (0.0-0.1) K/uL INR 1.14 APTT 28.3 (18.6-31.3) SEC Sodium 142 (136-148) mmol/L Potassium 3.6 (3.5-5.1) mmol/L Chloride 105 (98-107) mmol/L Carbon Dioxide 26.8 (21.0-32.0) mmol/L BUN 13 (7.0-18.0) mg/dL Creatinine 0.9 (0.8-1.3) mg/dL Est Cr Clr Drug Dosing 67.94 mL/min Estimated GFR (MDRD) > 60.0 ml/min Glucose 152 H (74-106) mg/dL POC Glucose (70-99) mg/dL Calcium 8.4 L (8.5-10.1) mg/dL Phosphorus 3.2 (2.6-4.7) mg/dL Magnesium 1.6 L (1.8-2.4) mg/dL Total Bilirubin 1.1 H (0.2-1.0) mg/dL AST 8 L (15-37) IU/L ALT 19 (14-63) IU/L Alkaline Phosphatase 100 (46-116) U/L Creatine Kinase 68 (26-308) U/L Troponin I < 0.050 (0.000-0.056) ng/mL Total Protein 6.8 (6.4-8.2) g/dL Albumin 3.4 (3.4-5.0) g/dL Globulin 3.4 (2.6-4.0) g/dL Albumin/Globulin Ratio 1.0 (0.9-1.6) Lipase 36 L (73-393) U/L TSH 3rd Generation (0.36-3.74) uIU/mL Urine Color Urine Appearance Urine pH (5.0-8.0) Ur Specific [place] (1.001-1.035) Urine Protein (NEGATIVE) mg/dL Urine Glucose (UA) (NEGATIVE) mg/dL Urine Ketones (NEGATIVE) mg/dL Urine Occult Blood (NEGATIVE) Urine Nitrite (NEGATIVE) Urine Bilirubin (NEGATIVE) Urine Urobilinogen (<2.0) EU/dL Ur Leukocyte Esterase (NEGATIVE) Urine RBC (0-2/HPF) Urine WBC (0-5/HPF) Ur Epithelial Cells (NONE-FEW) Urine Bacteria (NEGATIVE) SARS-CoV-2 RNA (ALLYSSA) (NEGATIVE) 12/19/20 12/19/20 12/19/20 Range/Units 11:48 13:15 14:51 WBC (4.0-11.0) K/uL RBC (4.50-5.90) M/uL Hgb (13.0-17.0) g/dL Hct (38.0-50.0) % MCV (80.0-98.0) fL MCH (27.0-32.0) pg MCHC (31.0-37.0) g/dL RDW Std Deviation (28.0-62.0) fl RDW Coeff of Ash (11.0-15.0) % Plt Count (150-400) K/uL MPV (7.40-12.00) fL Neut % (Auto) (48.0-80.0) % Lymph % (Auto) (16.0-40.0) % Greer % (Auto) (0.0-15.0) % Eos % (Auto) (0.0-7.0) % Baso % (Auto) (0.0-1.5) % Neut # (Auto) (1.4-5.7) K/uL Lymph # (Auto) (0.6-2.4) K/uL [place] # (Auto) (0.0-0.8) K/uL Eos # (Auto) (0.0-0.7) K/uL Baso # (Auto) (0.0-0.1) K/uL INR APTT (18.6-31.3) SEC Sodium (136-148) mmol/L Potassium (3.5-5.1) mmol/L Chloride (98-107) mmol/L Carbon Dioxide (21.0-32.0) mmol/L BUN (7.0-18.0) mg/dL Creatinine (0.8-1.3) mg/dL Est Cr Clr Drug Dosing mL/min Estimated GFR (MDRD) ml/min Glucose (74-106) mg/dL POC Glucose (70-99) mg/dL Calcium (8.5-10.1) mg/dL Phosphorus (2.6-4.7) mg/dL Magnesium (1.8-2.4) mg/dL Total Bilirubin (0.2-1.0) mg/dL AST (15-37) IU/L ALT (14-63) IU/L Alkaline Phosphatase (46-116) U/L Creatine Kinase (26-308) U/L Troponin I < 0.050 < 0.050 (0.000-0.056) ng/mL Total Protein (6.4-8.2) g/dL Albumin (3.4-5.0) g/dL Globulin (2.6-4.0) g/dL Albumin/Globulin Ratio (0.9-1.6) Lipase (73-393) U/L TSH 3rd Generation (0.36-3.74) uIU/mL Urine Color Urine Appearance Urine pH (5.0-8.0) Ur Specific [place] (1.001-1.035) Urine Protein (NEGATIVE) mg/dL Urine Glucose (UA) (NEGATIVE) mg/dL Urine Ketones (NEGATIVE) mg/dL Urine Occult Blood (NEGATIVE) Urine Nitrite (NEGATIVE) Urine Bilirubin (NEGATIVE) Urine Urobilinogen (<2.0) EU/dL Ur Leukocyte Esterase (NEGATIVE) Urine RBC (0-2/HPF) Urine WBC (0-5/HPF) Ur Epithelial Cells (NONE-FEW) Urine Bacteria (NEGATIVE) SARS-CoV-2 RNA (ALLYSSA) NEGATIVE (NEGATIVE) 12/19/20 12/19/20 12/19/20 Range/Units 14:51 15:57 18:17 WBC (4.0-11.0) K/uL RBC (4.50-5.90) M/uL Hgb (13.0-17.0) g/dL Hct (38.0-50.0) % MCV (80.0-98.0) fL MCH (27.0-32.0) pg MCHC (31.0-37.0) g/dL RDW Std Deviation (28.0-62.0) fl RDW Coeff of Ash (11.0-15.0) % Plt Count (150-400) K/uL MPV (7.40-12.00) fL Neut % (Auto) (48.0-80.0) % Lymph % (Auto) (16.0-40.0) % Gre[place] % (Auto) (0.0-15.0) % Eos % (Auto) (0.0-7.0) % Baso % (Auto) (0.0-1.5) % Neut # (Auto) (1.4-5.7) K/uL Lymph # (Auto) (0.6-2.4) K/uL Gre[place] # (Auto) (0.0-0.8) K/uL Eos # (Auto) (0.0-0.7) K/uL Baso # (Auto) (0.0-0.1) K/uL INR APTT (18.6-31.3) SEC Sodium (136-148) mmol/L Potassium (3.5-5.1) mmol/L Chloride (98-107) mmol/L Carbon Dioxide (21.0-32.0) mmol/L BUN (7.0-18.0) mg/dL Creatinine (0.8-1.3) mg/dL Est Cr Clr Drug Dosing mL/min Estimated GFR (MDRD) ml/min Glucose (74-106) mg/dL POC Glucose 112 H (70-99) mg/dL Calcium (8.5-10.1) mg/dL Phosphorus (2.6-4.7) mg/dL Magnesium (1.8-2.4) mg/dL Total Bilirubin (0.2-1.0) mg/dL AST (15-37) IU/L ALT (14-63) IU/L Alkaline Phosphatase (46-116) U/L Creatine Kinase (26-308) U/L Troponin I (0.000-0.056) ng/mL Total Protein (6.4-8.2) g/dL Albumin (3.4-5.0) g/dL Globulin (2.6-4.0) g/dL Albumin/Globulin Ratio (0.9-1.6) Lipase (73-393) U/L TSH 3rd Generation 1.17 (0.36-3.74) uIU/mL Urine Color YELLOW Urine Appearance CLEAR Urine pH 5.0 (5.0-8.0) Ur Specific [place] >= 1.030 (1.001-1.035) Urine Protein NEGATIVE (NEGATIVE) mg/dL Urine Glucose (UA) NEGATIVE (NEGATIVE) mg/dL Urine Ketones 15 H (NEGATIVE) mg/dL Urine Occult Blood TRACE-INTACT H (NEGATIVE) Urine Nitrite NEGATIVE (NEGATIVE) Urine Bilirubin NEGATIVE (NEGATIVE) Urine Urobilinogen 0.2 (<2.0) EU/dL Ur Leukocyte Esterase NEGATIVE (NEGATIVE) Urine RBC 0-2 (0-2/HPF) Urine WBC 0-1 (0-5/HPF) Ur Epithelial Cells FEW (NONE-FEW) Urine Bacteria RARE (NEGATIVE) SARS-CoV-2 RNA (ALLYSSA) (NEGATIVE) 12/20/20 12/20/20 Range/Units 06:29 07:50 WBC (4.0-11.0) K/uL RBC (4.50-5.90) M/uL Hgb (13.0-17.0) g/dL Hct (38.0-50.0) % MCV (80.0-98.0) fL MCH (27.0-32.0) pg MCHC (31.0-37.0) g/dL RDW Std Deviation (28.0-62.0) fl RDW Coeff of Ash (11.0-15.0) % Plt Count (150-400) K/uL MPV (7.40-12.00) fL Neut % (Auto) (48.0-80.0) % Lymph % (Auto) (16.0-40.0) % Greer % (Auto) (0.0-15.0) % Eos % (Auto) (0.0-7.0) % Baso % (Auto) (0.0-1.5) % Neut # (Auto) (1.4-5.7) K/uL Lymph # (Auto) (0.6-2.4) K/uL Gre[place] # (Auto) (0.0-0.8) K/uL Eos # (Auto) (0.0-0.7) K/uL Baso # (Auto) (0.0-0.1) K/uL INR APTT (18.6-31.3) SEC Sodium 142 (136-148) mmol/L Potassium 3.9 (3.5-5.1) mmol/L Chloride 108 H (98-107) mmol/L Carbon Dioxide 28.8 (21.0-32.0) mmol/L BUN 13 (7.0-18.0) mg/dL Creatinine 0.9 (0.8-1.3) mg/dL Est Cr Clr Drug Dosing 67.94 mL/min Estimated GFR (MDRD) > 60.0 ml/min Glucose 140 H (74-106) mg/dL POC Glucose 142 H (70-99) mg/dL Calcium 8.0 L (8.5-10.1) mg/dL Phosphorus 2.6 (2.6-4.7) mg/dL Magnesium 1.9 (1.8-2.4) mg/dL Total Bilirubin (0.2-1.0) mg/dL AST (15-37) IU/L ALT (14-63) IU/L Alkaline Phosphatase (46-116) U/L Creatine Kinase (26-308) U/L Troponin I (0.000-0.056) ng/mL Total Protein (6.4-8.2) g/dL Albumin (3.4-5.0) g/dL Globulin (2.6-4.0) g/dL Albumin/Globulin Ratio (0.9-1.6) Lipase (73-393) U/L TSH 3rd Generation (0.36-3.74) uIU/mL Urine Color Urine Appearance Urine pH (5.0-8.0) Ur Specific [place] (1.001-1.035) Urine Protein (NEGATIVE) mg/dL Urine Glucose (UA) (NEGATIVE) mg/dL Urine Ketones (NEGATIVE) mg/dL Urine Occult Blood (NEGATIVE) Urine Nitrite (NEGATIVE) Urine Bilirubin (NEGATIVE) Urine Urobilinogen (<2.0) EU/dL Ur Leukocyte Esterase (NEGATIVE) Urine RBC (0-2/HPF) Urine WBC (0-5/HPF) Ur Epithelial Cells (NONE-FEW) Urine Bacteria (NEGATIVE) SARS-CoV-2 RNA (ALLYSSA) (NEGATIVE) Med Orders - Current: Current Medications Acetaminophen (Acetaminophen 325 Mg Tab) 650 mg PO Q4H PRN PRN Reason: Pain (Mild 1-3)/fever Albuterol/Ipratropium (Albuterol/Ipratropium 3.0-0.5 Mg/3 Ml Neb Soln) 3 ml NEB Q4HRRT PRN PRN Reason: Shortness Of Breath/wheezing Apixaban (Apixaban 5 Mg Tab) 5 mg PO BID [facility] Last Admin: 12/20/20 08:56 Dose: 5 mg Documented by: Atorvastatin Calcium (Atorvastatin 20 Mg Tab) 20 mg PO BEDTIME [facility] Last Admin: 12/19/20 21:52 Dose: 20 mg Documented by: Dextrose/Water (50% Dextrose In Water 50 Ml Syringe) 50 ml IVPUSH ASDIRECTED PRN PRN Reason: Hypoglycemia Glucagon (Glucagon,Human Recombinant 1 Mg Vial) 1 mg IM ASDIRECTED PRN PRN Reason: Hypoglycemia Lactated Ringer's (Ringers, Lactated) 1,000 mls @ 125 mls/hr IV ASDIRECTED [facility] Last Admin: 12/20/20 09:09 Dose: 125 mls/hr Documented by: Insulin Aspart (Insulin Aspart 100 Units/Ml 3 Ml Pen) 0 unit SUBCUT TIDAC [facility]; Protocol Last Admin: 12/20/20 08:28 Dose: Not Given Documented by: Ondansetron HCl (Ondansetron 4 Mg/2 Ml Sdv) 4 mg IVPUSH Q4H PRN PRN Reason: Nausea/Vomiting Discontinued Medications Amlodipine Besylate (Amlodipine 5 Mg Tab) 5 mg PO ONETIME ONE Stop: 12/19/20 11:34 Last Admin: 12/19/20 12:03 Dose: Not Given Documented by: Magnesium Sulfate 2 gm/ Premix 50 mls @ 12.5 mls/hr IV Q4H [facility] Stop: 12/19/20 20:39 Last Admin: 12/19/20 16:55 Dose: 12.5 mls/hr Documented by: Metronidazole (Flagyl In Ns 500 Mg/100 Ml) Confirm Administered Dose 100 mls @ as directed .ROUTE .STK-MED ONE Stop: 12/20/20 01:14 Last Admin: 12/20/20 01:58 Dose: Not Given Documented by: Meclizine HCl (Meclizine 25 Mg Tab) 25 mg PO ONETIME ONE Stop: 12/19/20 11:34 Last Admin: 12/19/20 11:56 Dose: 25 mg Documented by: Potassium Chloride (Potassium Chloride 20 Meq Tab.Er) 40 meq PO ONETIME ONE Stop: 12/19/20 16:42 Last Admin: 12/19/20 16:55 Dose: 40 meq Documented by: Sertraline HCl (Sertraline 50 Mg Tab) 50 mg PO BID [facility] - Exam Quality Assessment: DVT Prophylaxis General: Alert, Oriented, Cooperative, No Acute Distress HEENT: Pupils Equal, Pupils Reactive, EOMI, Mucous Membr. Moist/[place] Neck: Supple Lungs: Clear to Auscultation, Normal Respiratory Effort Cardiovascular: Regular Rate, Regular Rhythm GI/Abdominal Exam: Normal Bowel Sounds, Soft, Non-Tender, No Organomegaly Extremities: Normal Inspection, Normal Range of Motion, Non-Tender, No Pedal Edema, Normal Capillary Refill Peripheral Pulses: 2+: Carotid (L), Carotid (R), Dorsalis Pedis (L), Dorsalis Pedis (R) Skin: Warm, Dry, Intact Neurological: No New Focal Deficit Psy/Mental Status: Alert, Normal Affect, Normal Mood - Patient Data Lab Results Last 24 hrs: Laboratory Results - last 24 hr 12/19/20 12/19/20 12/19/20 Range/Units 11:48 11:48 11:48 WBC 9.87 (4.0-11.0) K/uL RBC 4.26 L (4.50-5.90) M/uL Hgb 13.5 (13.0-17.0) g/dL Hct 40.0 (38.0-50.0) % MCV 93.9 (80.0-98.0) fL MCH 31.7 (27.0-32.0) pg MCHC 33.8 (31.0-37.0) g/dL RDW Std Deviation 44.0 (28.0-62.0) fl RDW Coeff of Ash 13 (11.0-15.0) % Plt Count 284 (150-400) K/uL MPV 8.90 (7.40-12.00) fL Neut % (Auto) 85.5 H (48.0-80.0) % Lymph % (Auto) 7.7 L (16.0-40.0) % [place] % (Auto) 6.2 (0.0-15.0) % Eos % (Auto) 0.5 (0.0-7.0) % Baso % (Auto) 0.1 (0.0-1.5) % Neut # (Auto) 8.4 H (1.4-5.7) K/uL Lymph # (Auto) 0.8 (0.6-2.4) K/uL [place] # (Auto) 0.6 (0.0-0.8) K/uL Eos # (Auto) 0.1 (0.0-0.7) K/uL Baso # (Auto) 0.0 (0.0-0.1) K/uL INR 1.14 APTT 28.3 (18.6-31.3) SEC Sodium 142 (136-148) mmol/L Potassium 3.6 (3.5-5.1) mmol/L Chloride 105 (98-107) mmol/L Carbon Dioxide 26.8 (21.0-32.0) mmol/L BUN 13 (7.0-18.0) mg/dL Creatinine 0.9 (0.8-1.3) mg/dL Est Cr Clr Drug Dosing 67.94 mL/min Estimated GFR (MDRD) > 60.0 ml/min Glucose 152 H (74-106) mg/dL POC Glucose (70-99) mg/dL Calcium 8.4 L (8.5-10.1) mg/dL Phosphorus 3.2 (2.6-4.7) mg/dL Magnesium 1.6 L (1.8-2.4) mg/dL Total Bilirubin 1.1 H (0.2-1.0) mg/dL AST 8 L (15-37) IU/L ALT 19 (14-63) IU/L Alkaline Phosphatase 100 (46-116) U/L Creatine Kinase 68 (26-308) U/L Troponin I < 0.050 (0.000-0.056) ng/mL Total Protein 6.8 (6.4-8.2) g/dL Albumin 3.4 (3.4-5.0) g/dL Globulin 3.4 (2.6-4.0) g/dL Albumin/Globulin Ratio 1.0 (0.9-1.6) Lipase 36 L (73-393) U/L TSH 3rd Generation (0.36-3.74) uIU/mL Urine Color Urine Appearance Urine pH (5.0-8.0) Ur Specific [place] (1.001-1.035) Urine Protein (NEGATIVE) mg/dL Urine Glucose (UA) (NEGATIVE) mg/dL Urine Ketones (NEGATIVE) mg/dL Urine Occult Blood (NEGATIVE) Urine Nitrite (NEGATIVE) Urine Bilirubin (NEGATIVE) Urine Urobilinogen (<2.0) EU/dL Ur Leukocyte Esterase (NEGATIVE) Urine RBC (0-2/HPF) Urine WBC (0-5/HPF) Ur Epithelial Cells (NONE-FEW) Urine Bacteria (NEGATIVE) SARS-CoV-2 RNA (ALLYSSA) (NEGATIVE) 12/19/20 12/19/20 12/19/20 Range/Units 11:48 13:15 14:51 WBC (4.0-11.0) K/uL RBC (4.50-5.90) M/uL Hgb (13.0-17.0) g/dL Hct (38.0-50.0) % MCV (80.0-98.0) fL MCH (27.0-32.0) pg MCHC (31.0-37.0) g/dL RDW Std Deviation (28.0-62.0) fl RDW Coeff of Ash (11.0-15.0) % Plt Count (150-400) K/uL MPV (7.40-12.00) fL Neut % (Auto) (48.0-80.0) % Lymph % (Auto) (16.0-40.0) % [place] % (Auto) (0.0-15.0) % Eos % (Auto) (0.0-7.0) % Baso % (Auto) (0.0-1.5) % Neut # (Auto) (1.4-5.7) K/uL Lymph # (Auto) (0.6-2.4) K/uL [place] # (Auto) (0.0-0.8) K/uL Eos # (Auto) (0.0-0.7) K/uL Baso # (Auto) (0.0-0.1) K/uL INR APTT (18.6-31.3) SEC Sodium (136-148) mmol/L Potassium (3.5-5.1) mmol/L Chloride (98-107) mmol/L Carbon Dioxide (21.0-32.0) mmol/L BUN (7.0-18.0) mg/dL Creatinine (0.8-1.3) mg/dL Est Cr Clr Drug Dosing mL/min Estimated GFR (MDRD) ml/min Glucose (74-106) mg/dL POC Glucose (70-99) mg/dL Calcium (8.5-10.1) mg/dL Phosphorus (2.6-4.7) mg/dL Magnesium (1.8-2.4) mg/dL Total Bilirubin (0.2-1.0) mg/dL AST (15-37) IU/L ALT (14-63) IU/L Alkaline Phosphatase (46-116) U/L Creatine Kinase (26-308) U/L Troponin I < 0.050 < 0.050 (0.000-0.056) ng/mL Total Protein (6.4-8.2) g/dL Albumin (3.4-5.0) g/dL Globulin (2.6-4.0) g/dL Albumin/Globulin Ratio (0.9-1.6) Lipase (73-393) U/L TSH 3rd Generation (0.36-3.74) uIU/mL Urine Color Urine Appearance Urine pH (5.0-8.0) Ur Specific [place] (1.001-1.035) Urine Protein (NEGATIVE) mg/dL Urine Glucose (UA) (NEGATIVE) mg/dL Urine Ketones (NEGATIVE) mg/dL Urine Occult Blood (NEGATIVE) Urine Nitrite (NEGATIVE) Urine Bilirubin (NEGATIVE) Urine Urobilinogen (<2.0) EU/dL Ur Leukocyte Esterase (NEGATIVE) Urine RBC (0-2/HPF) Urine WBC (0-5/HPF) Ur Epithelial Cells (NONE-FEW) Urine Bacteria (NEGATIVE) SARS-CoV-2 RNA (ALLYSSA) NEGATIVE (NEGATIVE) 12/19/20 12/19/20 12/19/20 Range/Units 14:51 15:57 18:17 WBC (4.0-11.0) K/uL RBC (4.50-5.90) M/uL Hgb (13.0-17.0) g/dL Hct (38.0-50.0) % MCV (80.0-98.0) fL MCH (27.0-32.0) pg MCHC (31.0-37.0) g/dL RDW Std Deviation (28.0-62.0) fl RDW Coeff of Ash (11.0-15.0) % Plt Count (150-400) K/uL MPV (7.40-12.00) fL Neut % (Auto) (48.0-80.0) % Lymph % (Auto) (16.0-40.0) % [place] % (Auto) (0.0-15.0) % Eos % (Auto) (0.0-7.0) % Baso % (Auto) (0.0-1.5) % Neut # (Auto) (1.4-5.7) K/uL Lymph # (Auto) (0.6-2.4) K/uL [place] # (Auto) (0.0-0.8) K/uL Eos # (Auto) (0.0-0.7) K/uL Baso # (Auto) (0.0-0.1) K/uL INR APTT (18.6-31.3) SEC Sodium (136-148) mmol/L Potassium (3.5-5.1) mmol/L Chloride (98-107) mmol/L Carbon Dioxide (21.0-32.0) mmol/L BUN (7.0-18.0) mg/dL Creatinine (0.8-1.3) mg/dL Est Cr Clr Drug Dosing mL/min Estimated GFR (MDRD) ml/min Glucose (74-106) mg/dL POC Glucose 112 H (70-99) mg/dL Calcium (8.5-10.1) mg/dL Phosphorus (2.6-4.7) mg/dL Magnesium (1.8-2.4) mg/dL Total Bilirubin (0.2-1.0) mg/dL AST (15-37) IU/L ALT (14-63) IU/L Alkaline Phosphatase (46-116) U/L Creatine Kinase (26-308) U/L Troponin I (0.000-0.056) ng/mL Total Protein (6.4-8.2) g/dL Albumin (3.4-5.0) g/dL Globulin (2.6-4.0) g/dL Albumin/Globulin Ratio (0.9-1.6) Lipase (73-393) U/L TSH 3rd Generation 1.17 (0.36-3.74) uIU/mL Urine Color YELLOW Urine Appearance CLEAR Urine pH 5.0 (5.0-8.0) Ur Specific [place] >= 1.030 (1.001-1.035) Urine Protein NEGATIVE (NEGATIVE) mg/dL Urine Glucose (UA) NEGATIVE (NEGATIVE) mg/dL Urine Ketones 15 H (NEGATIVE) mg/dL Urine Occult Blood TRACE-INTACT H (NEGATIVE) Urine Nitrite NEGATIVE (NEGATIVE) Urine Bilirubin NEGATIVE (NEGATIVE) Urine Urobilinogen 0.2 (<2.0) EU/dL Ur Leukocyte Esterase NEGATIVE (NEGATIVE) Urine RBC 0-2 (0-2/HPF) Urine WBC 0-1 (0-5/HPF) Ur Epithelial Cells FEW (NONE-FEW) Urine Bacteria RARE (NEGATIVE) SARS-CoV-2 RNA (ALLYSSA) (NEGATIVE) 12/20/20 12/20/20 Range/Units 06:29 07:50 WBC (4.0-11.0) K/uL RBC (4.50-5.90) M/uL Hgb (13.0-17.0) g/dL Hct (38.0-50.0) % MCV (80.0-98.0) fL MCH (27.0-32.0) pg MCHC (31.0-37.0) g/dL RDW Std Deviation (28.0-62.0) fl RDW Coeff of Ash (11.0-15.0) % Plt Count (150-400) K/uL MPV (7.40-12.00) fL Neut % (Auto) (48.0-80.0) % Lymph % (Auto) (16.0-40.0) % Greer % (Auto) (0.0-15.0) % Eos % (Auto) (0.0-7.0) % Baso % (Auto) (0.0-1.5) % Neut # (Auto) (1.4-5.7) K/uL Lymph # (Auto) (0.6-2.4) K/uL Greer # (Auto) (0.0-0.8) K/uL Eos # (Auto) (0.0-0.7) K/uL Baso # (Auto) (0.0-0.1) K/uL INR APTT (18.6-31.3) SEC Sodium 142 (136-148) mmol/L Potassium 3.9 (3.5-5.1) mmol/L Chloride 108 H (98-107) mmol/L Carbon Dioxide 28.8 (21.0-32.0) mmol/L BUN 13 (7.0-18.0) mg/dL Creatinine 0.9 (0.8-1.3) mg/dL Est Cr Clr Drug Dosing 67.94 mL/min Estimated GFR (MDRD) > 60.0 ml/min Glucose 140 H (74-106) mg/dL POC Glucose 142 H (70-99) mg/dL Calcium 8.0 L (8.5-10.1) mg/dL Phosphorus 2.6 (2.6-4.7) mg/dL Magnesium 1.9 (1.8-2.4) mg/dL Total Bilirubin (0.2-1.0) mg/dL AST (15-37) IU/L ALT (14-63) IU/L Alkaline Phosphatase (46-116) U/L Creatine Kinase (26-308) U/L Troponin I (0.000-0.056) ng/mL Total Protein (6.4-8.2) g/dL Albumin (3.4-5.0) g/dL Globulin (2.6-4.0) g/dL Albumin/Globulin Ratio (0.9-1.6) Lipase (73-393) U/L TSH 3rd Generation (0.36-3.74) uIU/mL Urine Color Urine Appearance Urine pH (5.0-8.0) Ur Specific [place] (1.001-1.035) Urine Protein (NEGATIVE) mg/dL Urine Glucose (UA) (NEGATIVE) mg/dL Urine Ketones (NEGATIVE) mg/dL Urine Occult Blood (NEGATIVE) Urine Nitrite (NEGATIVE) Urine Bilirubin (NEGATIVE) Urine Urobilinogen (<2.0) EU/dL Ur Leukocyte Esterase (NEGATIVE) Urine RBC (0-2/HPF) Urine WBC (0-5/HPF) Ur Epithelial Cells (NONE-FEW) Urine Bacteria (NEGATIVE) SARS-CoV-2 RNA (ALLYSSA) (NEGATIVE) Result Diagrams: 12/20/20 07:40 12/20/20 07:50 Sepsis Event Note - Evaluation Sepsis Screening Result: No Definite Risk - Focused Exam Vital Signs: Vital Signs Temp Pulse Resp BP Pulse Ox 12/20/20 07:54 97.6 F 45 L 18 141/65 H 95 12/20/20 05:00 97.7 F 45 L 18 146/84 H 95 12/20/20 01:02 97.7 F 43 L 18 160/73 H 95 - Problem List Review Problem List Initiated/Reviewed/Updated: Yes - My Orders Last 24 Hours: My Active Orders 12/20/20 09:17 CBC WITH AUTO DIFF [HEME] Stat 12/21/20 05:11 CBC WITH AUTO DIFF [HEME] AM CMP [COMPREHENSIVE METABOLIC PN,CMP] [CHEM] AM MAGNESIUM [CHEM] AM PHOSPHORUS [CHEM] AM - Plan Plan:: Patient is a 70 y/o M, who was admitted for lightheadedness, dizziness, bradycardia secondary to decreased oral hydration 1. Sinus bradycardia: Heart rate 31-45, normotensive, amlodipine has been held. [facility] -Cardiology was consulted, thoroughly discussed case, suspect that this is been a chronic issue given that patient has otherwise vitally stable, plan is for patient will have an echo prior to discharge, plan is to follow-up as outpatient with cardiology closely as he will likely benefit from a pacemaker. With appropriate blood pressure, orthostatics, and appropriate walk trial may discontinue fluids for now as patient has mild edema and is tolerating p.o. diet. 2.DM:held home dose, on ssi Resume home meds as appropriate including anticoagulation, resume sertraline only once a day 50 mg p.o. <Ness Crabtree - Last Filed: 12/22/20 14:40> - Patient Data Vitals - Most Recent: Last Vital Signs Temp 36.9 C 12/21/20 16:12 Pulse 58 L 12/21/20 17:55 Resp 20 12/21/20 16:12 BP 132/69 12/21/20 17:55 Pulse Ox 93 L 12/21/20 18:00 Orthostatic Blood Pressure [ 201/84 Standing] Orthostatic Blood Pressure [ 197/69 Sitting] Orthostatic Blood Pressure [ 180/71 Supine] Lab Results Last 24 Hours: Laboratory Results - last 24 hr 12/21/20 12/21/20 Range/Units 16:23 18:32 POC Glucose 211 H 209 H (70-99) mg/dL Med Orders - Current: Current Medications Discontinued Medications Acetaminophen (Acetaminophen 325 Mg Tab) 650 mg PO Q4H PRN PRN Reason: Pain (Mild 1-3)/fever Albuterol/Ipratropium (Albuterol/Ipratropium 3.0-0.5 Mg/3 Ml Neb Soln) 3 ml NEB Q4HRRT PRN PRN Reason: Shortness Of Breath/wheezing Amlodipine Besylate (Amlodipine 5 Mg Tab) 5 mg PO ONETIME ONE Stop: 12/19/20 11:34 Last Admin: 12/19/20 12:03 Dose: Not Given Documented by: Apixaban (Apixaban 5 Mg Tab) 5 mg PO BID [facility] Last Admin: 12/21/20 08:44 Dose: 5 mg Documented by: Atorvastatin Calcium (Atorvastatin 20 Mg Tab) 20 mg PO BEDTIME [facility] Last Admin: 12/20/20 21:34 Dose: 20 mg Documented by: Dextrose/Water (50% Dextrose In Water 50 Ml Syringe) 50 ml IVPUSH ASDIRECTED PRN PRN Reason: Hypoglycemia Glucagon (Glucagon,Human Recombinant 1 Mg Vial) 1 mg IM ASDIRECTED PRN PRN Reason: Hypoglycemia Hydralazine HCl (Hydralazine 20 Mg/Ml Sdv) 20 mg IVPUSH ONETIME ONE Stop: 12/21/20 13:58 Last Admin: 12/21/20 14:33 Dose: 20 mg Documented by: Hydralazine HCl (Hydralazine 20 Mg/Ml Sdv) 20 mg IVPUSH ONETIME ONE Stop: 12/21/20 16:28 Last Admin: 12/21/20 17:09 Dose: 20 mg Documented by: Lactated Ringer's (Ringers, Lactated) 1,000 mls @ 125 mls/hr IV ASDIRECTED [facility] Last Admin: 12/20/20 09:09 Dose: 125 mls/hr Documented by: Magnesium Sulfate 2 gm/ Premix 50 mls @ 12.5 mls/hr IV Q4H [facility] Stop: 12/19/20 20:39 Last Admin: 12/19/20 16:55 Dose: 12.5 mls/hr Documented by: Metronidazole (Flagyl In Ns 500 Mg/100 Ml) Confirm Administered Dose 100 mls @ as directed .ROUTE .STK-MED ONE Stop: 12/20/20 01:14 Last Admin: 12/20/20 01:58 Dose: Not Given Documented by: Insulin Aspart (Insulin Aspart 100 Units/Ml 3 Ml Pen) 0 unit SUBCUT TIDAC [facility]; Protocol Last Admin: 12/21/20 17:30 Dose: 2 unit Documented by: Lisinopril (Lisinopril 10 Mg Tab) 10 mg PO DAILY [facility] Last Admin: 12/21/20 08:45 Dose: 10 mg Documented by: Lisinopril (Lisinopril 10 Mg Tab) 10 mg PO ONETIME ONE Stop: 12/21/20 10:02 Last Admin: 12/21/20 10:19 Dose: 10 mg Documented by: Lisinopril (Lisinopril 10 Mg Tab) 20 mg PO ONETIME ONE Stop: 12/21/20 16:46 Last Admin: 12/21/20 16:56 Dose: Not Given Documented by: Meclizine HCl (Meclizine 25 Mg Tab) 25 mg PO ONETIME ONE Stop: 12/19/20 11:34 Last Admin: 12/19/20 11:56 Dose: 25 mg Documented by: Ondansetron HCl (Ondansetron 4 Mg/2 Ml Sdv) 4 mg IVPUSH Q4H PRN PRN Reason: Nausea/Vomiting Potassium Chloride (Potassium Chloride 20 Meq Tab.Er) 40 meq PO ONETIME ONE Stop: 12/19/20 16:42 Last Admin: 12/19/20 16:55 Dose: 40 meq Documented by: Sertraline HCl (Sertraline 50 Mg Tab) 50 mg PO BID [facility] Sertraline HCl (Sertraline 50 Mg Tab) 50 mg PO DAILY [facility] Last Admin: 12/21/20 08:44 Dose: 50 mg Documented by: - Patient Data Lab Results Last 24 hrs: Laboratory Results - last 24 hr 12/21/20 12/21/20 Range/Units 16:23 18:32 POC Glucose 211 H 209 H (70-99) mg/dL Result Diagrams: 12/21/20 05:25 12/21/20 05:25 - Problem List & Annotations (1) Bradycardia SNOMED Code(s): 39858008 Code(s): R00.1 - BRADYCARDIA, UNSPECIFIED Status: Acute (2) Atrial fibrillation SNOMED Code(s): 44282954 Code(s): I48.91 - UNSPECIFIED ATRIAL FIBRILLATION Status: Chronic (3) DM type 2 (diabetes mellitus, type 2) SNOMED Code(s): 77665031 Code(s): E11.9 - TYPE 2 DIABETES MELLITUS WITHOUT COMPLICATIONS Status: Chronic Qualifiers: 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
[2020-12-20] MEDS: Sertraline 50 MG Tab PO SCH (15:18)
[2020-12-20] MEDS: atorvaSTATin 20 MG Tab PO SCH (21:34)
[2020-12-21 06:14] LABS: BLOOD UREA NITROGEN,BUN 12 mg/dL (7.0-18.0); CARBON DIOXIDE,CO2 25.9 mmol/L (21.0-32.0); CHLORIDE,CL 106 mmol/L (98-107); GLUCOSE RANDOM 169 mg/dL (74-106); POTASSIUM,K 3.8 mmol/L (3.5-5.1); SODIUM,NA 141 mmol/L (136-148)
[2020-12-21] MEDS: Insulin Aspart 100 Units/ML 3 ML Pen SUBCUT SCH ×3 (08:42→17:30)
[2020-12-21] MEDS: Sertraline 50 MG Tab PO SCH (08:44)
[2020-12-21] MEDS: Apixaban 5 MG Tab PO SCH (08:44)
[2020-12-21] MEDS ORDERED: Lisinopril 10 MG Tab PO SCH (09:00)
[2020-12-21] MEDS ORDERED: Lisinopril 10 MG Tab PO ONE (10:01)
--- NOTE | 2020-12-21 11:58 | PCM.DCSUM1 ---
Discharge Summary - Hospital Course Diagnosis: Stroke: No - Discharge Data Discharge Disposition: Home, Self-Care 01 Condition: Good - Referral to Home Health Primary Care Physician: Ruslan Redd MD - Discharge Diagnosis/Problem(s) (1) Bradycardia SNOMED Code(s): 60890811 ICD Code: R00.1 - BRADYCARDIA, UNSPECIFIED Status: Acute Current Visit: Yes (2) Atrial fibrillation SNOMED Code(s): 80227857 ICD Code: I48.91 - UNSPECIFIED ATRIAL FIBRILLATION Status: Chronic Current Visit: No (3) DM type 2 (diabetes mellitus, type 2) SNOMED Code(s): 57932827 ICD Code: E11.9 - TYPE 2 DIABETES MELLITUS WITHOUT COMPLICATIONS Status: Chronic Current Visit: No Qualifiers: Diabetes mellitus senior care insulin use: with senior care use Diabetes mellitus complication status: with circulatory complication (4) HTN (hypertension) SNOMED Code(s): 98513875 ICD Code: I10 - ESSENTIAL (PRIMARY) HYPERTENSION Status: Chronic Current Visit: No (5) JOSSELIN on CPAP SNOMED Code(s): 86821941 ICD Code: G47.33 - OBSTRUCTIVE SLEEP APNEA (ADULT) (PEDIATRIC); 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 - Discharge Plan *PRESCRIPTION DRUG MONITORING PROGRAM REVIEWED*: Not Applicable *COPY OF PRESCRIPTION DRUG MONITORING REPORT IN PATIENT NISH: Not Applicable Prescriptions/Med Rec: lisinopriL [Prinivil] 20 mg PO DAILY #30 tablet Home Medications: Home Meds atorvaSTATin Calcium [Atorvastatin Calcium] 40 mg PO BEDTIME 01/09/15 [History] metFORMIN HCl [Metformin HCl] 1,000 mg PO BID 01/09/15 [History] Insulin Lispro [Humalog] 35 units SUBCUT BID 10/07/18 [History] Potassium Chloride [Klor-Con 10] 1 tab PO DAILY 12/29/18 [History] Sertraline [Zoloft] 2 tab PO DAILY 12/29/18 [History] Bumetanide 1 mg PO DAILY 12/31/18 [History] Apixaban [Eliquis] 5 mg PO BID #60 tablet 01/03/19 [Rx] lisinopriL [Prinivil] 20 mg PO DAILY #30 tablet 12/21/20 [Rx] Oxygen Therapy Mode: Room Air Patient Handouts: Bradycardia, Adult Referrals: Nadia Gonzalez MD [Physician] - 01/21/21 2:00 pm Ruslan Redd MD [Primary Care Provider] - 01/05/21 9:00 am - Patient Data Vitals - Most Recent: Last Vital Signs Temp 36.8 C 12/21/20 08:00 Pulse 78 12/21/20 08:00 Resp 20 12/21/20 08:00 BP 181/86 H 12/21/20 10:19 Pulse Ox 92 L 12/21/20 08:00 Orthostatic Blood Pressure [ 201/84 Standing] Orthostatic Blood Pressure [ 197/69 Sitting] Orthostatic Blood Pressure [ 180/71 Supine] Weight - Most Recent: 127.006 kg I&O - Last 24 hours: Intake & Output 12/20/20 12/21/20 12/21/20 22:59 06:59 14:59 Intake Total 1100 1000 Output Total 900 1300 Balance 200 -300 Lab Results - Last 24 hrs: Laboratory Results - last 24 hr 12/20/20 12/20/20 12/21/20 Range/Units 12:49 17:41 05:25 WBC 7.53 (4.0-11.0) K/uL RBC 4.09 L (4.50-5.90) M/uL Hgb 13.1 (13.0-17.0) g/dL Hct 38.6 (38.0-50.0) % MCV 94.4 (80.0-98.0) fL MCH 32.0 (27.0-32.0) pg MCHC 33.9 (31.0-37.0) g/dL RDW Std Deviation 44.7 (28.0-62.0) fl RDW Coeff of Ash 14 (11.0-15.0) % Plt Count 250 (150-400) K/uL MPV 9.50 (7.40-12.00) fL Neut % (Auto) 68.7 (48.0-80.0) % Lymph % (Auto) 18.2 (16.0-40.0) % [place] % (Auto) 10.9 (0.0-15.0) % Eos % (Auto) 1.9 (0.0-7.0) % Baso % (Auto) 0.3 (0.0-1.5) % Neut # (Auto) 5.2 (1.4-5.7) K/uL Lymph # (Auto) 1.4 (0.6-2.4) K/uL [place] # (Auto) 0.8 (0.0-0.8) K/uL Eos # (Auto) 0.1 (0.0-0.7) K/uL Baso # (Auto) 0.0 (0.0-0.1) K/uL Sodium (136-148) mmol/L Potassium (3.5-5.1) mmol/L Chloride (98-107) mmol/L Carbon Dioxide (21.0-32.0) mmol/L BUN (7.0-18.0) mg/dL Creatinine (0.8-1.3) mg/dL Est Cr Clr Drug Dosing mL/min Estimated GFR (MDRD) ml/min Glucose (74-106) mg/dL POC Glucose 196 H 216 H (70-99) mg/dL Calcium (8.5-10.1) mg/dL Phosphorus (2.6-4.7) mg/dL Magnesium (1.8-2.4) mg/dL Total Bilirubin (0.2-1.0) mg/dL AST (15-37) IU/L ALT (14-63) IU/L Alkaline Phosphatase (46-116) U/L Total Protein (6.4-8.2) g/dL Albumin (3.4-5.0) g/dL Globulin (2.6-4.0) g/dL Albumin/Globulin Ratio (0.9-1.6) 12/21/20 12/21/20 Range/Units 05:25 06:45 WBC (4.0-11.0) K/uL RBC (4.50-5.90) M/uL Hgb (13.0-17.0) g/dL Hct (38.0-50.0) % MCV (80.0-98.0) fL MCH (27.0-32.0) pg MCHC (31.0-37.0) g/dL RDW Std Deviation (28.0-62.0) fl RDW Coeff of Ash (11.0-15.0) % Plt Count (150-400) K/uL MPV (7.40-12.00) fL Neut % (Auto) (48.0-80.0) % Lymph % (Auto) (16.0-40.0) % [place] % (Auto) (0.0-15.0) % Eos % (Auto) (0.0-7.0) % Baso % (Auto) (0.0-1.5) % Neut # (Auto) (1.4-5.7) K/uL Lymph # (Auto) (0.6-2.4) K/uL [place] # (Auto) (0.0-0.8) K/uL Eos # (Auto) (0.0-0.7) K/uL Baso # (Auto) (0.0-0.1) K/uL Sodium 141 (136-148) mmol/L Potassium 3.8 (3.5-5.1) mmol/L Chloride 106 (98-107) mmol/L Carbon Dioxide 25.9 (21.0-32.0) mmol/L BUN 12 (7.0-18.0) mg/dL Creatinine 0.8 (0.8-1.3) mg/dL Est Cr Clr Drug Dosing 76.43 mL/min Estimated GFR (MDRD) > 60.0 ml/min Glucose 169 H (74-106) mg/dL POC Glucose 184 H (70-99) mg/dL Calcium 8.1 L (8.5-10.1) mg/dL Phosphorus 2.7 (2.6-4.7) mg/dL Magnesium 1.8 (1.8-2.4) mg/dL Total Bilirubin 0.9 (0.2-1.0) mg/dL AST 12 L (15-37) IU/L ALT 15 (14-63) IU/L Alkaline Phosphatase 88 (46-116) U/L Total Protein 6.3 L (6.4-8.2) g/dL Albumin 2.8 L (3.4-5.0) g/dL Globulin 3.5 (2.6-4.0) g/dL Albumin/Globulin Ratio 0.8 L (0.9-1.6) Med Orders - Current: Current Medications Acetaminophen (Acetaminophen 325 Mg Tab) 650 mg PO Q4H PRN PRN Reason: Pain (Mild 1-3)/fever Albuterol/Ipratropium (Albuterol/Ipratropium 3.0-0.5 Mg/3 Ml Neb Soln) 3 ml NEB Q4HRRT PRN PRN Reason: Shortness Of Breath/wheezing Apixaban (Apixaban 5 Mg Tab) 5 mg PO BID [facility] Last Admin: 12/21/20 08:44 Dose: 5 mg Documented by: Atorvastatin Calcium (Atorvastatin 20 Mg Tab) 20 mg PO BEDTIME [facility] Last Admin: 12/20/20 21:34 Dose: 20 mg Documented by: Dextrose/Water (50% Dextrose In Water 50 Ml Syringe) 50 ml IVPUSH ASDIRECTED PRN PRN Reason: Hypoglycemia Glucagon (Glucagon,Human Recombinant 1 Mg Vial) 1 mg IM ASDIRECTED PRN PRN Reason: Hypoglycemia Insulin Aspart (Insulin Aspart 100 Units/Ml 3 Ml Pen) 0 unit SUBCUT TIDAC [facility]; Protocol Last Admin: 12/21/20 08:42 Dose: 1 unit Documented by: Lisinopril (Lisinopril 10 Mg Tab) 10 mg PO DAILY [facility] Last Admin: 12/21/20 08:45 Dose: 10 mg Documented by: Ondansetron HCl (Ondansetron 4 Mg/2 Ml Sdv) 4 mg IVPUSH Q4H PRN PRN Reason: Nausea/Vomiting Sertraline HCl (Sertraline 50 Mg Tab) 50 mg PO DAILY [facility] Last Admin: 12/21/20 08:44 Dose: 50 mg Documented by: Discontinued Medications Amlodipine Besylate (Amlodipine 5 Mg Tab) 5 mg PO ONETIME ONE Stop: 12/19/20 11:34 Last Admin: 12/19/20 12:03 Dose: Not Given Documented by: Lactated Ringer's (Ringers, Lactated) 1,000 mls @ 125 mls/hr IV ASDIRECTED [facility] Last Admin: 12/20/20 09:09 Dose: 125 mls/hr Documented by: Magnesium Sulfate 2 gm/ Premix 50 mls @ 12.5 mls/hr IV Q4H [facility] Stop: 12/19/20 20:39 Last Admin: 12/19/20 16:55 Dose: 12.5 mls/hr Documented by: Metronidazole (Flagyl In Ns 500 Mg/100 Ml) Confirm Administered Dose 100 mls @ as directed .ROUTE .STK-MED ONE Stop: 12/20/20 01:14 Last Admin: 12/20/20 01:58 Dose: Not Given Documented by: Lisinopril (Lisinopril 10 Mg Tab) 10 mg PO ONETIME ONE Stop: 12/21/20 10:02 Last Admin: 12/21/20 10:19 Dose: 10 mg Documented by: Meclizine HCl (Meclizine 25 Mg Tab) 25 mg PO ONETIME ONE Stop: 12/19/20 11:34 Last Admin: 12/19/20 11:56 Dose: 25 mg Documented by: Potassium Chloride (Potassium Chloride 20 Meq Tab.Er) 40 meq PO ONETIME ONE Stop: 12/19/20 16:42 Last Admin: 12/19/20 16:55 Dose: 40 meq Documented by: Sertraline HCl (Sertraline 50 Mg Tab) 50 mg PO BID [facility]
--- NOTE | 2020-12-21 12:00 | PCM.EKG ---
#1 Interpretation EKG Date: 12/21/20 Rhythm: NSR P-Wave: Present EKG Interpretation Comments: sinus rhythm with 1st degree heart block
[2020-12-21] MEDS ORDERED: hydrALAZINE 20 MG/ML SDV IVPUSH ONE ×2 (13:57→16:27)
[2020-12-21] MEDS: Lisinopril 10 MG Tab PO ONE ×2 (16:52→16:56)
[2020-12-22 07:38] VITALS: BP 132/69; PULSE 58
== END 2020-12-21 19:15 | disposition home or self-care (01) | DRG 309 ==
LOC: MW.ED 11:11 → MW.MS 14:26
PROVIDERS: ADMIT Student in an Organized Health Care Education/Training Program; ATTEND Student in an Organized Health Care Education/Training Program
DX: R00.1 Bradycardia, unspecified (principal); R42 Dizziness and giddiness; Z68.41 Body mass index [BMI] 40.0-44.9, adult; I48.91 Unspecified atrial fibrillation; E11.9 Type 2 diabetes mellitus without complications; G47.30 Sleep apnea, unspecified; I10 Essential (primary) hypertension; G47.33 Obstructive sleep apnea (adult) (pediatric); E78.00 Pure hypercholesterolemia, unspecified; R39.15 Urgency of urination; R35.0 Frequency of micturition; E66.9 Obesity, unspecified; Z20.822 Contact with and (suspected) exposure to COVID-19; Z99.89 Dependence on other enabling machines and devices; Z79.4 Long term (current) use of insulin; Z79.01 Long term (current) use of anticoagulants; Z79.899 Other long term (current) drug therapy; Z98.890 Other specified postprocedural states
CPT/HCPCS: 36415; 70450; 71045; 80053; 82550; 83690; 83735; 84100; 84484 ×2; 85025; 85610; 85730; 93005; 99285; A9270; U0002; 80048; 81001; 82947; 84443; 93010; 93306; 99284; J0360; J1815-GY; J3475; J7120

== ENCOUNTER 2022-01-22 14:47 | Emergency (ER) | payer MEDICARE, BC ==
[2022-01-22] MEDS ORDERED: Sodium Chloride 0.9% 2.5 ML Syringe FLUSH PRN (15:06)
[2022-01-22] MEDS ORDERED: Sodium Chloride 0.9% 10 ML Syringe FLUSH PRN (15:06)
[2022-01-22 16:10] LABS: CARBON DIOXIDE,CO2 22.2 mmol/L (21.0-32.0); POTASSIUM,K 5.9 mmol/L (3.5-5.1)
[2022-01-22] MEDS ORDERED: Sodium Chloride 0.9% 1,000 ML IV ONE (16:19)
[2022-01-22 21:03] VITALS: BP 100/44; PULSE 65
== END 2022-01-22 21:01 | disposition home or self-care (01) ==
LOC: MW.ED 14:47
DX: R06.01 Orthopnea (principal); N28.9 Disorder of kidney and ureter, unspecified; J06.9 Acute upper respiratory infection, unspecified; E78.00 Pure hypercholesterolemia, unspecified; I10 Essential (primary) hypertension; E66.9 Obesity, unspecified; Z68.30 Body mass index [BMI] 30.0-30.9, adult; Z79.899 Other long term (current) drug therapy; Z79.84 Long term (current) use of oral hypoglycemic drugs; Z79.4 Long term (current) use of insulin; Z79.01 Long term (current) use of anticoagulants; Z20.822 Contact with and (suspected) exposure to COVID-19
CPT/HCPCS: 36415; 71045; 80053; 83880; 84484; 85025; 85379; 93005; 96360; 99285; J3490; J7030; U0002; 93010

== ENCOUNTER 2022-01-30 18:14 | Emergency (ER) | payer MEDICARE, BC ==
[2022-01-30] MEDS ORDERED: Sodium Chloride 0.9% 2.5 ML Syringe FLUSH PRN (18:32)
[2022-01-30] MEDS ORDERED: Sodium Chloride 0.9% 10 ML Syringe FLUSH PRN (18:32)
[2022-01-30] MEDS ORDERED: Sodium Chloride 0.9% 1,000 ML IV ONE ×4 (18:59→22:53)
[2022-01-30] MEDS ORDERED: Ondansetron 4 MG/2 ML SDV IVPUSH ONE (19:10)
[2022-01-30] MEDS ORDERED: Meclizine 25 MG Tab PO ONE (19:10)
[2022-01-30 19:51] LABS: CARBON DIOXIDE,CO2 21.1 mmol/L (21.0-32.0); POTASSIUM,K 5.4 mmol/L (3.5-5.1)
[2022-01-30] MEDS ORDERED: Piperacillin/Tazobactam 3.375 GM in Sodium Chloride 0.9% 50 ML IV ONE (20:13)
[2022-01-31] MEDS ORDERED: Sodium Chloride 0.9% 1,000 ML IV ONE (02:01)
[2022-01-31] MEDS ORDERED: Norepinephrine 4 MG in Dextrose 5% in Water 246 ML IV SCH ×2 (02:15)
[2022-01-31 04:00] VITALS: BP 132/81; PULSE 86
== END 2022-01-31 03:35 ==
LOC: MW.ED 18:14
DX: N17.9 Acute kidney failure, unspecified (principal); I95.9 Hypotension, unspecified; D72.819 Decreased white blood cell count, unspecified; Z20.822 Contact with and (suspected) exposure to COVID-19; I10 Essential (primary) hypertension; E78.00 Pure hypercholesterolemia, unspecified; E66.9 Obesity, unspecified; I48.91 Unspecified atrial fibrillation; Z68.29 Body mass index [BMI] 29.0-29.9, adult; Z79.899 Other long term (current) drug therapy
CPT/HCPCS: 36415; 36556; 70486; 71045; 71250; 74176; 80053; 81003; 82550; 83605; 83735; 84484; 85025; 87040; 93005; 96361; 96365; 96375; 99285; A9270; J2405; J2543; J7030; U0002

== ENCOUNTER 2024-09-22 15:06 | Emergency (ER) | payer MEDICARE, BC ==
[2024-09-22 15:32] VITALS: BP 146/67
[2024-09-22] MEDS ORDERED: Sodium Chloride 0.9% 10 ML Syringe FLUSH PRN (16:04)
[2024-09-22] MEDS ORDERED: Sodium Chloride 0.9% 2.5 ML Syringe FLUSH PRN (16:04)
[2024-09-22 16:26] LABS: EOSINOPHILS ABSOLUTE AUTO 0.08 K/uL (0.00-0.45); EOSINOPHILS PERCENT AUTO 1.7 % (0.0-6.0); HEMATOCRIT 36.5 % (42.0-52.0); HEMOGLOBIN 11.9 g/dL (14.0-18.0); IMMATURE GRAN ABSOLUTE AUTO 0.02 K/uL (0.00-0.05); IMMATURE GRAN PERCENT AUTO 0.4 % (0.0-0.4); LYMPHOCYTES ABSOLUTE AUTO 0.93 K/uL (1.00-4.80); LYMPHOCYTES PERCENT AUTO 20.3 % (24.0-44.0); MEAN CORPUSCULAR HEMOGLOBIN 32.8 pg (28.0-32.0); MEAN CORPUSCULAR HGB CONC 32.6 g/dL (32.0-36.0); MEAN CORPUSCULAR VOLUME 100.6 fL (83.0-99.0); MEAN PLATELET VOLUME 9.3 fL (9.4-12.4); MONOCYTES ABSOLUTE AUTO 0.41 K/uL (0.00-0.80); NEUTROPHILS ABSOLUTE AUTO 3.14 K/uL (1.80-7.70); NEUTROPHILS PERCENT AUTO 68.6 % (41.0-71.0); PLATELET COUNT,PLT 104 K/uL (150-400); RED BLOOD CELL COUNT 3.63 M/uL (4.52-5.90); WHITE BLOOD CELL COUNT,WBC 4.58 K/uL (3.9-11.3)
[2024-09-22 16:36] LABS: INR 1.08 (0.86-1.11)
[2024-09-22 16:55] LABS: ALBUMIN 3.9 g/dL (3.4-5.0); BILIRUBIN TOTAL 0.7 mg/dL (0.2-1.0); CALCIUM 9.2 mg/dL (8.5-10.1); CARBON DIOXIDE,CO2 28.6 mmol/L (21.0-32.0); CREATININE 1.2 mg/dL (0.8-1.3); POTASSIUM,K 4.2 mmol/L (3.5-5.1); PROTEIN TOTAL,TP 7.8 g/dL (6.4-8.2)
[2024-09-22] MEDS: LORazepam 0.5 MG Tab PO ONE (17:22)
[2024-09-22 17:35] VITALS: PULSE 49
== END 2024-09-22 17:35 | disposition home or self-care (01) ==
LOC: MW.ED 15:06
DX: I11.0 Hypertensive heart disease with heart failure (principal); I50.9 Heart failure, unspecified; D64.9 Anemia, unspecified; I48.91 Unspecified atrial fibrillation; E78.00 Pure hypercholesterolemia, unspecified; Z79.84 Long term (current) use of oral hypoglycemic drugs; Z79.899 Other long term (current) drug therapy; Z79.4 Long term (current) use of insulin; Z79.01 Long term (current) use of anticoagulants
CPT/HCPCS: 36415; 71045; 80053; 83880; 84484; 85025; 85610; 93005; 99284; A9270